=== PATIENT | male | born 1985 | race Caucasian/White ===

== ENCOUNTER 2024-02-24 21:55 | Emergency (ER) | payer OTHER ==
--- OUTSIDE RECORDS SUMMARY | 2024-02-24 21:59 | XMS REPORT | Continuity of Care Document ---
Author Name Unknown Address [address] [place] [place] [address] [facility]connect Address [address] [facility] [address] [place] [address] Care Team Providers Care Polysomnography Technician Name Role Phone Cecy Morrell MD Primary Care Physician [phone] Jorge Mukherjee Attending Clinician Unavailab le FOG_A_Provider Attending Clinician Unavailable Cecy Morrell MD Attending Clinician [phone] Doctor Unassigned, [place]er Attending Clinician U AIDE Jackson Attending Clinician UnaCECY Gibbons Attending Clinician Unavailable Apolinar Calderon Attending Clinician Unavailable Syeda Brannon Admitting Clinician Unavaila ble FOG_A_Provider Admitting Clinician Unavailable Payers Payer Name Policy Type Policy Number Effective Date Expirati on Date Source [facility] CHOICE PLUS (PPO) [id number] 2023 00:00:00 Problems Condition Name Condition Details Condition Category Status Onset Date Resolution Date Last Treatment Date Treating Clinician Comments Source No known active problems No known active problems Disease [facility] Allergies, Adverse Reactions, Alerts Allergy Name Allergy Type Status Severity Reaction(s) Onset Date Inactive Date Treating Clinician Comments Source No Known Allergie s DA Active U 2021-11 00:00: 00 [facility] PENICILL INS Drug Class Active Rash 08-14 00:00: 00 [facility] Penicill ins Propensi ty to adverse reaction s Active Rash 08-14 00:00: 00 [facility] Penicill ins Propensi ty to adverse reaction s Active Rash 08-14 00:00: 00 [facility] NO KNOWN ALLERGIE S Drug Class Active [facility] Social History Social Habit Start Date Stop Date Quantity Comments Source Exposure to SARS-CoV-2 (event) 2022-10-20 00:00:00 2022-10-30 07:45:00 Not sure [facility] Tobacco use and exposure 2022-08-22 00:00:00 2022-08-22 00:00:00 Smokeless tobacco non-user [facility] Sex Assigned At 1985 00:00:00 1985 00:00:00 [facility] Smoking Status Start Date Stop Date Source Tobacco smoking consumption unknown [facility] Never smoked tobacco [facility] Medications Ordered Medication Name Filled Medication Name Start Date Stop Date Current Medication? Ordering Clinician Indication Dosage Frequency Signature (SIG) Comments Components Source clotrimazol e-betametha sone cream 12-31 00:00: 00 Yes [id number] Apply to area(s) 2 (two) times daily. [facility] semaglutide (OZEMPIC) 1 mg/dose (2 mg/1.5 mL) [facility] 2021-11 00:00: 00 Yes [id number] 104 inject 1 mg base under the skin weekly. [facility] semaglutide (OZEMPIC) 1 mg/dose (2 mg/1.5 mL) [facility] 2021-11 1- 00:00: 00 11-20 00:00 :00 No [id number] 104 inject 1 mg base under the skin weekly. [facility] semaglutide (OZEMPIC) 0.25 mg or 0.5 mg(2 mg/1.5 mL) [facility] 2021-11 0-06 00:00: 00 09-25 00:00 :00 No [id number] 104 .5mg inject 0.5 mg under the skin weekly. [facility] clotrimazol e-betametha sone cream 08-22 00:00: 00 12-31 00:00 :00 No [id number] Apply to area(s) 2 (two) times daily. [facility] semaglutide , weight loss, 0.5 mg/0.5 mL PnIj SC injection 08-22 00:00: 00 08-28 00:00 :00 No [id number] 104 .5mg inject 0.5 mg under the skin weekly for 30 days. [facility] No known medications 08-14 10:22: 10 No [facility] Immunizations Ordered Immunization Name Filled Immunization Name Date Status Comments Source Pfizer COVID-19 Vaccine Pfizer COVID-19 Vaccine 2021-08-09 00:00:00 Completed Pfizer COVID-19 Vaccine Pfizer COVID-19 Vaccine 2021-07-09 00:00:00 Completed Vital Signs Vital Name Observation Time Observation Value Comments S ource Systolic blood pressure 2022-09-25 18:54:00 129 mm[Hg] [facility] Diastolic blood pressure 2022-09-25 18:54:00 84 mm[Hg] [facility] Heart rate 2022-09-25 18:54:00 73 /min [facility] Body temperature 2022-09-25 18:25:00 36.61 Tran [facility] Respiratory rate 2022-09-25 18:25:00 20 /min [facility] Body height 2022-09-25 18:25:00 180.3 cm [facility] Body weight 2022-09-25 18:25:00 136.034 kg [facility] BMI 2022-09-25 18:25:00 41.83 kg/m2 [facility] Oxygen saturation in Arterial blood by Pulse oximetry 2022-09-25 18:25:00 96 /min [facility] Systolic blood pressure 2022-08-22 19:21:00 136 mm[Hg] [facility] Diastolic blood pressure 2022-08-22 19:21:00 84 mm[Hg] [facility] Heart rate 2022-08-22 19:21:00 75 /min [facility] Body temperature 2022-08-22 19:21:00 36.17 Tran [facility] Respiratory rate 2022-08-22 19:21:00 20 /min [facility] Body height 2022-08-22 19:21:00 179.1 cm [facility] Body weight 2022-08-22 19:21:00 139.164 kg [facility] BMI 2022-08-22 19:21:00 43.40 kg/m2 [facility] Oxygen saturation in Arterial blood by Pulse oximetry 2022-08-22 19:21:00 96 /min [facility] Systolic blood pressure 2021-08-14 14:27:00 137 mm[Hg] [facility] Diastolic blood pressure 2021-08-14 14:27:00 83 mm[Hg] [facility] Heart rate 2021-08-14 14:27:00 57 /min [facility] Body temperature 2021-08-14 14:27:00 36.28 Tran [facility] Respiratory rate 2021-08-14 14:27:00 18 /min [facility] Body height 2021-08-14 14:27:00 180.3 cm [facility] Body weight 2021-08-14 14:27:00 130.636 kg [facility] BMI 2021-08-14 14:27:00 40.17 kg/m2 [facility] Oxygen saturation in Arterial blood by Pulse oximetry 2021-08-14 14:27:00 97 /min [facility] Procedures Procedure Date / Time Performed Performing Clinician Source REFERRAL- REQUEST/RESPONSE 2022-11-08 06:01:00 Doctor Unassigned, Maeser [facility] ASSIGNMENT OF BENEFITS 2022-08-22 19:10:29 Docto r Unassigned, Maeser [facility] PATIENT QUESTIONNAIRE 2021-08-14 05:01:00 Doctor Unassigned, Maeser [facility] Encounters Start Date/Time End Date/Time Encounter Type Admission Type Attending Clinicians Care Facility Care Department Encounter ID Source 2023-08-15 17:39:00 2023-08-15 19:39:00 Emergency EM Jorge Mukherjee [facility] [id number] [facility] 2023-05-04 00:00:00 2023-05-04 00:00:00 Outpatient FOG_A_Provi briana AOSM AOSM [id number] [facility] 2023-05-01 00:00:00 2023-05-01 00:00:00 Outpatient FOG_A_Provi briana AOSM AOSM [id number] [facility] 2023-04-30 00:00:00 2023-04-30 00:00:00 Outpatient FOG_A_Provi briana AOSM AOSM [id number] [facility] 2023-04-29 00:00:00 2023-04-29 00:00:00 Outpatient FOG_A_Provi briana AOSM AOSM [id number] [facility] 2022-12-31 00:00:00 2022-12-31 00:00:00 Telephone Cecy Morrell [facility] 1..114 350.1.13.10 4.2.7.2.686 [id number] [facility] 2022-11-20 00:00:00 2022-11-20 00:00:00 Refill Cecy Morrell [facility] 1..114 350.1.13.10 4.2.7.2.686 [id number] [facility] 2022-11-08 00:00:00 2022-11-08 00:00:00 Orders Only Doctor Unassigned, Maeser [facility] 1.840.114 350.1.13.10 4.2.7.2.686 [id number] [facility] 2022-10-30 08:40:00 2022-10-30 08:40:00 Outpatient R CECY MORRELL [facility] [id number] [facility] 2022-10-28 15:09:00 2022-10-28 17:23:00 Emergency EM Apolinar Calderon [facility] [id number] [facility] 2022-09-25 13:20:00 2022-09-25 13:40:00 Office Visit PorscheCecy [facility] 1.840.114 350.1.13.10 4.2.7.2.686 [id number] [facility] 2022-09-25 13:20:00 2022-09-25 13:20:00 Outpatient R [facility] [id number] [facility] 2022-09-25 00:00:00 2022-09-25 00:00:00 Letter (Out) Doctor Unassigned, Ma[place]er [facility] 1.0.114 350.1.13.10 4.2.7.2.686 [id number] [facility] 2022-08-22 14:00:00 2022-08-22 14:20:00 Office Visit Cecy Morrell [facility] 1.2840.114 350.1.13.10 4.2.7.2.686 [id number] [facility] 2022-08-22 14:00:00 2022-08-22 14:00:00 Outpatient R PORSCHE [facility] [id number] [facility] 2022-08-22 00:00:00 2022-08-22 00:00:00 Orders Only Doctor Unassigned, [place]er [facility] 1.840.114 350.1.13.10 4.2.7.2.686 [id number] [facility] 2022-08-22 00:00:00 2022-08-22 00:00:00 Telephone Cecy Morrell [facility] 1.2.840.114 350.1.13.10 4.2.7.2.686 [id number] [facility] 2021-08-14 09:20:00 2021-08-14 09:20:00 Outpatient R CECY MORRELL [facility] [id number] [facility] 2021-08-14 08:54:28 2021-08-14 09:14:28 Office Visit Cecy Morrell [facility] 1..840.114 350.1.13.10 4.2.7.2.686 [id number] [facility] 2021-08-14 00:00:00 2021-08-14 00:00:00 Orders Only Doctor Unassigned, Maeser [facility] 1.2.840.114 350.1.13.10 4.2.7.2.686 [id number] [facility] 2021-08-09 00:00:00 2021-08-09 00:00:00 Outpatient [facility] [id number] [facility] 2021-07-09 00:00:00 2021-07-09 00:00:00 Outpatient GCCOVIDV [facility] [id number] [facility] Results Test Description Test Time Test Comments Results Result Co mments Source POC STREP GROUP A [id number] 19:15:00* Test Item Value Reference Range Interpretation Comme nts POC STREP GROUP A QUAL (test code = EDSTREP) Negative Negative Testing performe d at:[facility] [address] [place], [place] [address]RN-XFJ Strep-A is a rapid, instrument-based, molecular invitro diagnostic test utilizing isothermal nucleic acidamplification technology for the qualitative detection ofStreptococcus pyogenes URINALYSIS [id number] 18:47:00* Test Item Value Reference Range Interpretation Comme nts POC URINE COLOR (test code = EDCOLU) Yellow Yellow Testing performe d at:[facility] [address] [place] [address] POC URINE CLARITY (test code = EDCLARITY) Clear Clear POC URINE GLUCOSE (test code = EDGLUU) Negative Negative POC URINE BILIRUBIN (test code = EDBILIU) Negative Negative POC URINE KETONES (test code = EDKETU) Negative Negative POC URINE SPECIFIC GRAVITY (test code = EDSGU) 1.025 1.001-1.035 N POC URINE BLOOD (test code = EDBLDU) Negative Negative POC URINE pH (test code = EDPH) 7.0 5.0-8.0 N POC URINE PROTEIN (test code = EDPROTU) Negative Negative POC URINE UROBILINOGEN (test code = EDURO) 1.0 E.U/dL 0.2-1.0 POC URINE NITRITE (test code = EDNIT) Negative Negative POC URINE LEUKOCYTE ESTERASE (test code = EDLEUK) Negative Negative POC TROPONIN [id number] 18:39:00* Test Item Value Reference Range Interpretation Comme [facility] POC TROPONIN I (test code = EDTROPI) <0.05 ng/mL <0.05 N Testing performe d at:[facility] [address] [place] [address]"Point of Care test critical value notification anddocumentation is completed by nursing staff. Negative <0.05 ng/mLPositive >/= 0.05 ng/mL Test results should not be used as absolute evidence or lackof evidence of myocardial infarction and should be evaluatedin the context of all the clinical and laboratory dataavailable. In those instances where the test results do notagree with the clinical evaluation, additional tests shouldbe performed.An elevated troponin alone is not sufficient to diagnosemyocardial infarction. Rather, the patient's clinicalpresentation (history, physical exam) and ECG should be usedin conjunction with troponin in the diagnostic evaluation ofsuspected myocardial infarction. A serial sampling protocolis recommended to facilitate the identification of temporalchanges in troponin levels. POC LACTIC [id number] 18:36:00* Test Item Value Reference Range Interpretation Comme nts POC LACTIC ACID (test code = POCLAC) 1.2 mmol/l 0.9-1.7 N COMPREHENSIVE METABOLIC [id number] 18:32:00* Test Item Value Reference Range Interpretation Comme nts POC SODIUM (test code = CONSUELO) 141 mmol/L 134-147 N Testing performe d at:[facility] [address] [place], [place] [address] POC POTASSIUM (test code = EDK) 3.8 mmol/L 3.4-5.8 N POC CHLORIDE (test code = EDCL) 104 mmol/L 100-108 N POC TCO2 (test code = EDTCO2) 29 mmol/L 24-30 N POC ANION GAP (test code = EDAGAP) 8 0-20 N POC BUN (test code = EDBUN) 17 mg/dL 3-25 N POC CREATININE (test code = EDCRE) 1.2 mg/dL 0.6-1.3 N POC GLUCOSE (test code = EDGLUC) 105 mg/dL 70-110 N POC CALCIUM (test code = EDCA) 9.7 mg/dL 7.0-11.0 N POC eGFR (test code = EDGFR) 80 mL/min See_Comment eGFR is not calc ulated if age <18 yrs, if the sex in EHR islisted as unknown or the creatinine level is below assayrange.This result value is determined by the eGFR 2021 CKD-EPIformula using serum creatinine, age and sex, excluding arace coefficient. The assay for creatinine is traceable tothe IDAR reference method. Chronic kidney disease (CKD) maynot be detectable based solely on creatinine levels. A eGFR> 60 does not rule out mild renal disease. To distinguishnormal renal function from mild renal disease, furtherlaboratory testing may be required. [Automated message] The system which generated this result transmitted reference range: >or=60. The reference range was not used to interpret this result as normal/abnormal. POC ALBUMIN (test code = EDALB) 3.8 g/dL 3.5-5.0 N POC TOTAL PROTEIN (test code = EDTP) 7.6 g/dL 5.0-8.0 N POC BILIRUBIN TOTAL (test code = EDTBIL) 0.6 mg/dL 0.0-1.0 N POC AST (test code = EDAST) 23 U/L 15-37 N POC ALT (test code = EDALT) 34 U/L 30-65 N POC ALKALINE PHOSPHATASE (test code = EDALP) 74 U/L 20-125 N - XR CHEST 2 [id number] 18:25:00 [facility] 1985 Sex: M FAX: Jorge Mukherjee [place]: [place] St: PRE FAX: Syeda Brannon [employer] Name: ERICKA FRIAS FSED : 1985 Age/S: 37/M [address] [facility] Unit #: [id number] Loc: [place] [address] Phys: Scot Mukherjee MD Acct: [id number] Dis Date: Status: PRE ER PHONE #: Exam Date: 08/15/2023 1820 FAX #: Reason: sob, fever, eval for pna EXAMS: CPT CODE: [id number] XR CHEST 2 V 32488 Location: H3 CHEST X-RAY: PA and lateral projection, 2 views conducted 08/15/23 CLINICAL HISTORY: Shortness of breath, fever. This is a 37-year-old patient presenting to the ER COMPARISON EXAMS: Chest x-ray examination conducted 10/28/22 FINDINGS: Heart, lungs, and mediastinal structures are within normal limits. No evolvingprocess or pleural based finding. No active CHF or pneumonia. No groundglass density. No evolving lobar consolidation. No abnormal air collection. IMPRESSION: No acute finding at 1825 Reported and signed by: Elis Tate M.D. CC: Jorge Mukherjee MD; Syeda Brannon Technologist: Shari Maher RT(R)(CT) Trnscrd Date/Time/By: 08/15/2023 (1824) : By: [email or web address] Orig Print D/T: S: 08/15/2023 (1827)PAGE 1 Signed ReportCOMPLETE BLOOD COUNT (CBC)2023-08-15 18:18:00* Test Item Value Reference Range Interpretation Comme nts POC WHITE BLOOD CELL (test code = EDWBC) 5.2 10 3/uL 3.9-9.4 N Testing perf ormed at:[facility] [address] [place], [place] [address] POC RED BLOOD CELL (test code = EDRBC) 5.27 10 6/uL 4.14-5.52 N POC HEMOGLOBIN (test code = EDHGB) 15.4 g/dL 11.9-16.7 N POC HEMATOCRIT (test code = EDHCT) 45.3 % 36.1-49.4 N POC MEAN CELL VOLUME (test code = EDMCV) 86.0 fL 83.2-96.0 N POC MEAN CELL HEMOGLOBIN (test code = EDMCH) 29.2 pg 27.1-32.5 N POC MEAN CELL HGB CONC (test code = EDMCHC) 34.0 g/dL 31.0-35.8 N POC PLATELET COUNT (test code = EDPLT) 165 10 3/uL 155-330 N POC RED CELL DISTRIB WIDTH (test code = EDRDW-CV) 13.2 % 12.0-15.0 N POC LYMPHOCYTES % (test code = EDLYM%) 24.2 % 16.8-42.5 N POC MIXED CELLS % (test code = EDMXD%) 9.3 % 3.2-16.9 N POC NEUTROPHILS % (test code = EDNEUT%) 66.5 % 46.4-74.7 N POC LYMPHOCYTES # (test code = EDLYM#) 1.30 k/mm3 0.9-3.0 N POC MIXED CELLS # (test code = EDMXD#) 0.5 10 3/uL 0.2-1.1 N POC NEUTROPHILS # (test code = EDNEUT#) 3.40 10 3/uL 2.2-6.4 N POC MEAN PLATELET VOLUME (test code = EDMPV) 11.5 fL 8.7-12.6 N Coronavirus 2019 nCoV [id number] 18:14:00* Test Item Value Reference Range Interpretation Comme nts Coronavirus 2019 nCoV Bedside (test code = [id number]) Negative Negative The [employer] ID NO W utilizes isothermal [place]icking EnzymeAmplification Reaction (NEAR) technology in the qualitativedetection of infectious diseases. With NEAR technology,amplified target detection is achieved with the use offluorescently labeled molecular beacons, comparable to PCRtechniques -----Negative results should be treated as presumptive and, ifinconsistent with clinical signs and symptoms or necessaryfor patient management, should be tested with an alternativemolecular assay. Negative results do not preclude ESUP-IhK-3cfelttwdd and should not be used as the sole basis forpatient management decisions. Negative results should beconsidered in the context of a patient's recent exposures,history, presence of clinical signs and symptoms consistentwith COVID-19. BASIC METABOLIC [id number] 16:25:00* Test Item Value Reference Range Interpretation Comme nts SODIUM (test code = NA) 140 mEq/L 134-147 N POTASSIUM (test code = K) 4.0 mEq/L 3.4-5.0 N CHLORIDE (test code = CL) 107 mEq/L 100-108 N CARBON DIOXIDE (test code = CO2) 28 mEq/l 21-33 N ANION GAP (test code = GAP) 9 0-20 N GLUCOSE (test code = GLU) 95 mg/dL 70-110 N BLOOD UREA NITROGEN (test code = BUN) 16 mg/dL 7-18 N GLOMERULAR FILTRATION RATE (test code = GFR) 100.0 105-110 L The Glomerular Filtration Rate is a calculated parameterbased on serum Creatinine, patient age and sex. GFR valuesless than 60 mL/min/1.73 square meters are indicative ofChronic Kidney Disease. Values less than 15 mL/min/1.73square meters indicate Kidney failure. The calculation forGFR is based on the CKD-EPI (2020) calculation. This formulais race indifferent and is the recommended formula for GFRby the National Kidney Foundation for Adults.The GFR will not calculate if the sex is unknown or if thepatient's age is <18 years. CREATININE (test code = CREAT) 1.0 mg/dL 0.6-1.3 N CALCIUM (test code = CA) 9.1 mg/dL 8.0-10.5 N TROP-I HIGH [id number] 16:25:00* Test Item Value Reference Range Interpretation Comme nts TROP-I HIGH SENSITIVITY (test code = TROPIHS) 3 ng/L 0-54 N CAUTION: Units o f the current test methodology (ng/L) differfrom the prior test methodology (ng/mL) by a factor of 1000. 99th Percentile Upper Reference Limit (URL): Females: 34 ng/LMales: 54 ng/L In order to distinguish acute elevations of high sensitivitytroponin from other clinical conditions, the FourthUniversal Definition of Myocardial Infarction stressesclinical assessment and the demonstration of a rise and/orfall in serial troponin results above the URL. These results were obtained using Siemens AteSverve IM TnIHreagent. Results from different methodologies should not becompared to one another as quantitative results and URLs mayvary by method. CBC W/AUTO [id number] 16:08:00* Test Item Value Reference Range Interpretation Comme nts WHITE BLOOD CELL (test code = WBC) 6.6 x10 3/uL 4.5-11.0 N RED BLOOD CELL (test code = RBC) 4.99 x10 6/uL 4.00-5.60 N HEMOGLOBIN (test code = HGB) 14.9 g/dL 12.5-16.9 N HEMATOCRIT (test code = HCT) 42.3 % 37.5-50.7 N MEAN CELL VOLUME (test code = MCV) 84.8 fL 81.0-99.0 N MEAN CELL HGB (test code = MCH) 29.9 pg 27.0-33.0 N MEAN CELL HGB CONCETRATION (test code = MCHC) 35.2 g/dL 33.0-37.0 N RED CELL DISTRIBUTION WIDTH CV (test code = RDW) 12.1 % 11.5-14.5 N RED CELL DISTRIBUTION WIDTH SD (test code = RDW-SD) 36.9 fL 37.0-54.0 L PLATELET COUNT (test code = PLT) 205 x10 3/uL 150-400 N MEAN PLATELET VOLUME (test c ode = MPV) 9.9 fL 7.0-9.0 H NEUTROPHIL % (test code = NT%) 47.8 % 56.0-77.0 L IMMATURE GRANULOCYTE % (test code = IG%) 0.2 % 0.0-2.0 N LYMPHOCYTE % (test code = LY%) 41.5 % 14.0-32.0 H MONOCYTE % (test code = MO%) 8.6 % 4.8-9.0 N EOSINOPHIL % (test code = EO%) 1.1 % 0.3-3.7 N BASOPHIL % (test code = BA%) 0.8 % 0.0-2.0 N NUCLEATED RBC % (test code = NRBC%) 0.0 % 0-0 N NEUTROPHIL # (test code = NT#) 3.17 x10 3/uL 2.0-7.6 N IMMATURE GRANULOCYTE # (test code = IG#) 0.01 x10 3/uL 0.00-0.03 N LYMPHOCYTE # (test code = LY#) 2.75 x10 3/uL 1.0-3.8 N MONOCYTE # (test code = MO#) 0.57 x10 3/uL 0.1-0.8 N EOSINOPHIL # (test code = EO#) 0.07 x10 3/uL 0.0-0.2 N BASOPHIL # (test code = BA#) 0.05 x10 3/uL 0.0-0.2 N NUCLEATED RBC # (test code = NRBC#) 0.00 x10 3/uL 0.0-0.1 N MANUAL DIFF REQUIRED (test c ode = LALITA) NO - XR CHEST 1 [id number] 00:00:00 [facility] 1985 Sex: M FAX: Syeda Brannon [facility] [place]: St: REG FAX: Apolinar Calderon MD Name: ERICKA FRIAS [facility] : 1985 Age/S: 36/M [address] [place] [address] Unit #: [id number] Loc: [place] [address] Phys: Apolinar Calderon MD Acct: [id number] Dis Date: Status: REG ER PHONE #: [phone] Exam Date: 10/28/2022 1614 FAX #: [phone] Reason: CP EXAMS: CPT CODE: [id number] XR CHEST 1 V 21663 PROCEDURE INFORMATION: Exam: XR Chest Exam date and time: 10/28/2022 4:09 PM Age: 36 years old Clinical indication: Other: Cp TECHNIQUE: Imaging protocol: Radiologic exam of the chest. Views: 1 view. COMPARISON: No relevant prior studies available. FINDINGS: Lungs: Mild decreased lung volumes. No consolidation. Pleural spaces: No pleural effusion. No pneumothorax. Heart/Mediastinum: The cardiac silhouette is not enlarged. Bones/joints: No destructive bone lesions. IMPRESSION: No acute cardiopulmonary findings. at 1656 Reported and signed by: Cody Carr M.D. CC: Syeda Brannon; Apolinar Calderon MD Technologist: RT Malvin(R) Trnscrd Date/Time/By: 10/28/2022 (1655) : By: [email or web address] Orig Print D/T: S: 10/28/2022 ( 1655) PAGE 1 Signed Report Notes Date/Time Note Provider Source 2023-08-15 17:58:00 [id number]/pSlNtbVqhDg/[id number]:58:00 [facility] ([facility])EMERGENCY PROVIDER REPORTREPORT#:[id number] REPORT STATUS: SignedDATE:08/15/23 TIME: 1757 PATIENT: ERICKA FRIAS UNIT #: [id number]#: [id number] ROOM/BED:AGE: 37 SEX: M PCP PHYS: Syeda BrannonERVICE AUTHOR: Jorge Mukherjee MD * ALL edits or amendments must be made on the electronic/computer document * HPI-Fever Free Text HPI NotesFree Text HPI Eebly42-opgm-thc no significant past medical history, here with 3 days of congestion,fatigue, fever and stiff neck that developed earlier today. 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 Denies any trauma. Reports several children at home who have had infectious symptoms, tested negative for COVID, flu, strep. Patient reports soreness but not stiffness in neck, no vision changes, other back pain, generally feels fatigued and achy. Reports dyspnea, particularly on walking. Denies any chest pain, abdominal pain. GeneralInitial Greet Date/Time 08/15/23 1743PCPKathleenvijay Brannon ([facility]) PresentationChief Complaint Fever, currently Review of Systems Free Text ROS NotesFree Text ROS NotesReview of systems was performed, pertinent positives and negatives noted in HPI Past Medical History - AdultStated Complaint FEVER, STIFF NECKAllergiesCoded Allergies:No Known Allergies (10/28/22) Calculated Suicide Risk (nurs) No riskSmoking status for patients 13 years old or older: Never Smoker Physical Exam Vital SignsVital SignsFirst Documented: Result Date Time Pulse Ox 96 08/15 1744 B/P 148/80 08/15 1744 B/P Mean 102 08/15 1744 O2 Delivery Room air 08/15 1744 Temp 37.8 08/15 1744 Pulse 101 08/15 1744 Resp 16 08/15 1744 Last Documented: Result Date Time Pulse Ox 97 08/15 1936 B/P 138/80 08/15 1936 B/P Mean 99 08/15 1936 Temp 36.8 08/15 1936 Pulse 89 08/15 1936 Resp 15 08/15 1936 O2 Delivery Room air 08/15 1744 Review of Vital Signs Reviewed Free Text PE NotesFree Text PE NotesGEN/CONST: awake, alertMS HEAD: normocephalicEYES: EOMI, no scleral icterusEARS/NOSE/THROAT: airway patent, mucous membranes moistMS NECK: supple, full range of motion, no tenderness to palpation, no meningismusRESPIRATORY/CHEST: breath sounds equal bilaterally, no respiratory distressCARDIOVASCULAR: Tachycardic rate and regular rhythmABDOMEN/GI: no distension, soft and nontenderMS BACK: painless range of motion, non-tender, negative Kernig and Brudzinski signMS UPPER EXT: inspection normal, no deformity MS LOWER EXT: inspection normal, no deformity SKIN: warm, dry, intactNEURO: normal speech, no motor deficits Interpretation Diagnostics Lab Results InterpretationResultsLaboratory Tests: 08/15 08/15 08/15 08/15 1908 1906 1845 1837Chemistry POC Troponin I (<0.05 ng/mL) <0.05Serology POC Influenza A Ag (Negative) Negative POC Influenza B Ag (Negative) Negative POC Group A Strep Rpd (Negative) NegativeUrines POC Urine Color (Yellow) Yellow POC Urine Appearance (Clear) Clear POC Urine pH (5.0 - 8.0) 7.0 POC Ur Specif [place] (1.001 - 1.035) 1.025 POC Urine Protein (Negative) Negative POC Ur Glucose (UA) (Negative) Negative POC Urine Ketones (Negative) Negative POC Urine Blood (Negative) Negative POC Urine Nitrite (Negative) Negative POC Urine Bilirubin (Negative) Negative POC Urine Urobilinogen (0.2 - 1.0 E.U/dL) 1.0 POC U Leukocyte Esteras (Negative) Negative 08/15 08/15 08/15 1820 1817 1804 Blood Gas Lactic Acid (0.9 - 1.7 mmol/l) 1.2 Chemistry POC Sodium (134 - 147 mmol/L) 141 POC Potassium (3.4 - 5.8 mmol/L) 3.8 POC Chloride (100 - 108 mmol/L) 104 POC Total CO2 (24 - 30 mmol/L) 29 POC Anion Gap (0 - 20) 8 POC BUN (3 - 25 mg/dL) 17 POC Creatinine (0.6 - 1.3 mg/dL) 1.2 Est GFR (CKD-EPI 2020) (>or=60 mL/min) 80 POC Glucose (70 - 110 mg/dL) 105 POC Calcium (7.0 - 11.0 mg/dL) 9.7 POC Total Bilirubin (0.0 - 1.0 mg/dL) 0.6 POC AST (15 - 37 U/L) 23 POC ALT (30 - 65 U/L) 34 POC Alk Phosphatase (20 - 125 U/L) 74 POC Total Protein (5.0 - 8.0 g/dL) 7.6 POC Albumin (3.5 - 5.0 g/dL) 3.8 Hematology POC WBC (3.9 - 9.4 10 3/uL) 5.2 POC RBC (4.14 - 5.52 10 6/uL) 5.27 POC Hgb (11.9 - 16.7 g/dL) 15.4 POC Hct (36.1 - 49.4 %) 45.3 POC MCV (83.2 - 96.0 fL) 86.0 POC MCH (27.1 - 32.5 pg) 29.2 POC MCHC (31.0 - 35.8 g/dL) 34.0 POC RDW Coeff of Etta (12.0 - 15.0 %) 13.2 POC Platelet Count (155 - 330 10 3/uL) 165 POC MPV (8.7 - 12.6 fL) 11.5 POC Mixed Cells % (3.2 - 16.9 %) 9.3 POC Neut # (2.2 - 6.4 10 3/uL) 3.40 POC Lymph # (0.9 - 3.0 k/mm3) 1.[address] # (0.2 - 1.1 10 3/uL) 0.5 POC Lymphocytes % (16.8 - 42.5 %) 24.2 POC Neutrophils % (46.4 - 74.7 %) 66.5 Serology SARS CoV-2 RNA Rapid PERICO (Negative) Negative Microbiology: Date/Time Procedure - Status Source Growth 08/15 1754 MRSA DNA Surveillance Screen - COLB NASAL 08/15 161 Blood Culture - RES BLOOD 08/15 1610 Blood Culture Gram Stain - RES BLOOD 08/15 1553 Blood Culture - RES BLOOD 08/15 1553 Blood Culture Gram Stain - RES BLOOD Recent Impressions:RADIOLOGY - XR CHEST 2 V 08/15 1820 Report Impression - Status: SIGNED Entered: 08/15/20231827 IMPRESSION: No acute finding Impression By: Lewis - Elis Tate M.D. ECG #1 InterpretationText/Dict NoteEKG from 08/15/2023 at 1837, performed for sepsis screenInterpreted by myself, ED physicianSinus rhythm, rate 89Normal axisNormal intervalsNo ST elevation or ST depression suggestive of ischemia Re-Evaluation MDM Free Text MDM NotesFree Text MDM [id number] otherwise healthy here for several days of fever, fatigue, new neck pain Considered meningitis, patient with very supple neck, full range of motion, negative Kernig and Budzinski, no indication for lumbar puncture at this time Given fever and heart rate, meets SIRS criteria with infectious signs and symptoms will treat as sepsis with full sepsis protocol and fluid bolus adjustedfor IBW Given shortness of breath will treat for possible pulmonary causes with ceftriaxone and azithromycin as initial antimicrobial coverage Re-Evaluation/ProgressRe-Evaluation/Progress Text/Dict NotePatient with symptomatic improvement, improvement in vital sign, no leukocytosis, no other signs of organ dysfunction/damage, no lactic acid elevation Chest x-ray independently reviewed and interpreted by me, ED physician. No focal consolidation suggestive of pneumonia, no pneumothorax. 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 Discussed strict return precautions. All caregivers present expressed understanding and agreement with plan along with the patient. Discharged in stable condition. ED CourseMedication(s) OrderedMedication(s) Ordered:Anti-Infective Agents Sig/Clarisse Start time Last Medication Dose Route Stop Time Status Admin Azithromycin 500 MG X1ED STA 08/15 1753 DC 08/15 Sodium Chloride 250 ML IV 08/15 1852 1813 Ceftriaxone Sodium 1,000 MG X1ED STA 08/15 1753 DC 08/15 Sodium Chloride 10 ML IV 08/15 175 1813 Central Nervous System Agents Sig/Clarisse Start time Last Medication Dose Route Stop Time Status Admin Acetaminophen 1,000 MG X1ED STA 08/15 1753 DC 08/15 PO 08/15 175 1806 Ibuprofen 600 MG X1ED STA 08/15 1753 DC 08/15 PO 08/15 175 1806 Electrolytic, Caloric, And Risa Sig/Clarisse Start time Last Medication Dose Route Stop Time Status Admin Sodium Chloride 2,259 ML X1ED STA 08/15 1753 DC 08/15 IV 08/15 175 1810 Patient Discharge Departure Vital Signs/ConditionVital SignsFirst Documented: Result Date Time Pulse Ox 96 08/15 174 B/P 148/80 08/15 174 B/P Mean 102 08/15 174 O2 Delivery Room air 08/15 1744 Temp 37.8 08/15 174 Pulse 101 08/15 174 Resp 16 08/15 1744 Last Documented: Result Date Time Pulse Ox 97 08/15 1936 B/P 138/80 08/15 1936 B/P Mean 99 08/15 1936 Temp 36.8 08/15 1936 Pulse 89 08/15 1936 Resp 15 08/15 1936 O2 Delivery Room air 08/15 1744 All vital signs available at the time of this entry have been reviewed. Condition Stable, Improved Clinical ImpressionClinical ImpressionPrimary Impression: Viral syndromeTime of Impression 1919 Disposition DecisionDischarge )( Discharged to Home Yes )( Time 1919 )( Date 08/15/23 Discharge/Care PlanPatient Instructions ED Fever Control (Adult), ED Viral Syndrome (Adult)Additional InstructionsFor pain, you can take 400mg of Ibuprofen every 4 hours and 650 mg of Acetaminophen every 6 hours. They are available over the counter at most pharmacies and grocery stores. ReferralsReferral: Primary Care Follow-Up: Call for appointment at 0619RPT #:[id number] OF REPORTEDEmergency department [id number]:58:00G.[id number] ilable for patient [id number]:20:04 [facility] 2022-10-28 16:09:00 [id number]:09:00 [facility]EM[facility] PROVIDER REPORTREPORT#:[id number] REPORT STATUS: SignedDATE:10/28/22 TIME: 1609 PATIENT: ERICKA FRIAS UNIT #: [id number]#: [id number] ROOM/BED:AGE: 36 SEX: M PCP PHYS: Syeda Brannon FNPSERVICE AUTHOR: Apolinar Calderon MD * ALL edits or amendments must be made on the electronic/computer document * HPI-General Illness Free Text HPI NotesFree Text HPI [id number] male with no segment past medical history. 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 Patient has noted chest pain for the past 3 days, dull, radiating to the right side and arm. No change with motion, does not radiate to back. No diaphoresis,nausea vomiting, leg swelling. Patient took an aspirin, no improvement. Patient worried given that they did an EKG on the chart, noted some EKG changes GeneralInitial Greet Date/Time 10/28/22 5357 PresentationChief Complaint Chest pain Review of Systems ROS StatementsAll systems rev neg except as marked. Review of SystemsConstitutionalDenies: Fever. RespiratoryDenies: Cough, productive, Shortness of breath. CardiovascularReports: Chest pain. Denies: Dyspnea on exertion, Edema, Orthopnea, Syncope. Past Medical History - AdultStated Complaint CPAllergiesCoded Allergies:No Known Allergies (10/28/22) Calculated Suicide Risk (nurs) No riskPt reports no significant: Past medical history, Past surgical historySmoking status for patients 13 years old or older: Never Smoker Physical Exam Vital SignsVital SignsFirst Documented: Result Date Time Pulse Ox 97 10/28 1521 B/P 143/90 / 1521 B/P Mean 107 10/28 1521 O2 Delivery Room air 10/28 152 Temp 36.8 10/28 1521 Pulse 66 10/28 1521 Resp 16 10/28 152 Last Documented: Result Date Time Pulse Ox 97 10/28 1521 B/P 143/90 10/28 1521 B/P Mean 107 10/28 1521 O2 Delivery Room air 10/28 1521 Temp 36.8 10/28 152 Pulse 66 10/28 1521 Resp 16 10/28 1521 Review of Vital Signs Reviewed Basic Physical ExamBasic PE GEN: Well appearing/NAD, HEAD: Atraumatic/NC, EYES: PERRL, conj clear, ENT: Membranes moist, NECK: Supple, RESP: No resp distress, CV: Reg rate rhythm, ABD: Soft/non-tender, EXT: No gross abnormality, SKIN: No rashes, warm/dry, NEURO: alert oriented, NEURO: gross movement NL, PSYCH: NL thought content Physical ExamGeneral/Const General/Const Awake, Alert, Well appearingResp/Chest Respiratory/Chest Breath sounds NL, Breath sounds = bilat, No respiratory distress, No rales, No rhonchi, No wheezingCardiovascular Cardiovascular Heart rate NL, Regular rhythm, Heart sounds NL, Cap refill notdelayed, Peripheral circulation NLAbdomen/GI Abdomen/GI Soft, Non-tender, No guarding, No reboundMS Lower Extrem Lower Ext/Pelvis/MS Inspection NL, No swelling, Non-tender, No erythema, No deformity, Neurologic intact, Vascular intact, No edemaNeurologic Neurologic Oriented X3, Speech NL, No motor deficits, No sensory deficits Interpretation Diagnostics Lab Results InterpretationResultsLaboratory Tests 10/28/22 1559:[Embedded Image Not Available]Laboratory Tests: 10/28 1559 Chemistry Sodium (134 - 147 mEq/L) 140 Potassium (3.4 - 5.0 mEq/L) 4.0 Chloride (100 - 108 mEq/L) 107 Carbon Dioxide (21 - 33 mEq/l) 28 Anion Gap (0 - 20) 9 BUN (7 - 18 mg/dL) 16 Creatinine (0.6 - 1.3 mg/dL) 1.0 Glomerular Filtr Rate (105 - 110) 100.0 L Glucose (70 - 110 mg/dL) 95 Calcium (8.0 - 10.5 mg/dL) 9.1 Troponin I High Sens (0 - 54 ng/L) 3 Hematology WBC (4.5 - 11.0 x10 3/uL) 6.6 RBC (4.00 - 5.60 x10 6/uL) 4.99 Hgb (12.5 - 16.9 g/dL) 14.9 Hct (37.5 - 50.7 %) 42.3 MCV (81.0 - 99.0 fL) 84.8 MCH (27.0 - 33.0 pg) 29.9 MCHC (33.0 - 37.0 g/dL) 35.2 RDW (11.5 - 14.5 %) 12.1 Plt Count (150 - 400 x10 3/uL) 205 MPV (7.0 - 9.0 fL) 9.9 H Neut % (Auto) (56.0 - 77.0 %) 47.8 L Lymph % (Auto) (14.0 - 32.0 %) 41.[address] % (Auto) (4.8 - 9.0 %) 8.6 Eos % (Auto) (0.3 - 3.7 %) 1.1 Baso % (Auto) (0.0 - 2.0 %) 0.8 Neut # (Auto) (2.0 - 7.6 x10 3/uL) 3.17 Lymph # (Auto) (1.0 - 3.8 x10 3/uL) 2.75 [place] # (Auto) (0.1 - 0.8 x10 3/uL) 0.57 Eos # (Auto) (0.0 - 0.2 x10 3/uL) 0.07 Baso # (Auto) (0.0 - 0.2 x10 3/uL) 0.05 Abs Immat Gran (auto) (0.00 - 0.03 x10 3/uL) 0.01 Add Manual Diff NO Immature Gran % (0.0 - 2.0 %) 0.2 Nucleated RBC % (0 - 0 %) 0.0 Nucleated RBCs # (Man) (0.0 - 0.1 x10 3/uL) 0.00 Recent Impressions:RADIOLOGY - XR CHEST 1 V 10/28 1614 Report Impression - Status: SIGNED Entered: 10/28/2022 1656 IMPRESSION: No acute cardiopulmonary findings. Impression By: [email or web address] - Cody Carr M.D. ECG #1 InterpretationText/Dict [id number]- EKG reviewed and interpreted by myself- NSR rate 86- Normal rate, Normal sinus rhythm, Normal Intervals and axis- No findings suggestive of acute ischemia. no STEMI, Adequate tracing Re-Evaluation MDM Free Text MDM NotesFree Text MDM [id number] male with chest pain, right-sided, minimal risk factors- chest pain non-pressure, not assoc with dyspnea or diaphoresis- LCTAB, normal heart sounds, no unilateral leg swelling. Normal distal pulses- Heart score low risk, Wells score low likelihood of PE or DVT, PERC 0. We will work-up including labs, likely discharge with cardiology follow-up ED CourseMedication(s) OrderedMedication(s) Ordered:Central Nervous System Agents Sig/Clarisse Start time Last Medication Dose Route Stop Time Status Admin Ketorolac 15 MG X1ED STA 10/28 1609 DC Tromethamine IV 10/28 1610 Patient Discharge Departure Vital Signs/ConditionVital SignsFirst Documented: Result Date Time Pulse Ox 97 10/28 1521 B/P 143/90 / 1521 B/P Mean 107 10/28 1521 O2 Delivery Room air 10/28 1521 Temp 36.8 12 1521 Pulse 66 10/28 1521 Resp 16 10/28 1521 Last Documented: Result Date Time Pulse Ox 97 10/28 1521 B/P 143/90 12/ 1521 B/P Mean 107 10/28 1521 O2 Delivery Room air 10/28 1521 Temp 36.8 12 1521 Pulse 66 10/28 1521 Resp 16 10/28 1521 All vital signs available at the time of this entry have been reviewed. Clinical ImpressionClinical ImpressionPrimary Impression: Chest pain Disposition DecisionDischarge )( Discharged to Home Yes )( Time 1704 )( Date 10/28/22 Discharge/Care PlanCounseled Regarding Diagnosis, Lab results, Imaging studies, Need for follow-up,When to return to EDPatient Instructions ED Chest Pain, Uncertain CauseAdditional InstructionsYou were seen in the ER for chest pain. We did a work-up including EKGs, lab work, chest x-ray which were all normal. We were looking for emergencies such as heart attacks, pneumonia, or other diseases involving your heart or lungs. Please continue to take Tylenol or NSAIDs (ibuprofen, Motrin, Advil, Aleve) as needed for aches and pains. Return to the ER if symptoms worsen including: Worsening shortness of breath, chest pain, respiratory distress, or any other concerns. Otherwise, please follow-up with your primary care physician in 1 week ReferralsProvider Referral: Lia Jacobo MD Address: [address] [place] [address] at 1750RPT #:[id number] OF REPORTEDEmerarkansas surgical hospital department [id number]:09:00G.[id number] ilable for patient [id number]:50:43 HCACL
[2024-02-24 23:13] LABS: Absolute Basophils 0.1 K/uL (0-0.5); Absolute Eosinophils 0.1 K/uL (0-0.5); Absolute Lymphocytes (CBC) 3.1 K/uL (0.7-4.9); Absolute Monocytes 0.5 K/uL (0.1-1.3); Absolute Neutrophil 3.2 K/uL (1.8-8.0); Basophils % 0.9 % (0-1.3); Eosinophils % 1.3 % (0-4.4); Hematocrit 43.3 % (39.6-49.0); Hemoglobin 14.6 g/dL (13.6-17.9); Lymphocytes % 44.5 % (15.3-44.8); MCH 29.3 pg (27.0-35.0); MCHC 33.8 g/dL (32.0-36.0); MCV 86.7 fL (80-100); Monocytes % 7.5 % (3.3-12.3); Neutrophils % 45.8 % (41.7-73.7); Nucleated Red Blood Cells % 0.1 % (0-0); Platelets 219 thou/uL (152-406); RBC Red Blood Cell Count 4.99 M/uL (4.33-5.43); Red Cell Distribution Width 13.2 % (12.1-15.2)
[2024-02-24 23:37] LABS: Anion Gap 8.8 mEq/L (5.0-15.0); Potassium 3.8 mEq/L (3.5-5.1); Troponin High Sensitivity 6.1 pg/mL (<58.9)
--- NOTE | 2024-02-25 03:09 | ER ---
Nurse's Notes [facility]read Name: Miko Martínez Age: 38 yrs Sex: Male : 1985 Arrival Date: 02/24/2024 Time: 21:55 Bed 19 Private MD: Diagnosis: Chest pain, unspecified;Non cardiac chest pain Presentation: 02/23 22:11 Chief complaint: Patient states: Chest pain onset 2 weeks ago. Pt states that the pain cm10 is constant and today the pain got worse. Pt reports indigestion, denies shortness of breath. Coronavirus screen: Client denies travel out of the [place] in the last 14 days. At this time, the client does not indicate any symptoms associated with coronavirus-19. Ebola Screen: Patient denies travel to an Ebola-affected area in the 21 days before illness onset. No symptoms or risks identified at this time. Initial Sepsis Screen: Does the patient meet any 2 criteria? No. Patient's initial sepsis screen is negative. Does the patient have a suspected source of infection? No. Patient's initial sepsis screen is negative. Risk Assessment: Do you want to hurt yourself or someone else? Patient reports no desire to harm self or others. Onset of symptoms was February 24, 2024. 22:11 Method Of Arrival: Ambulatory cm10 22:11 Acuity: DANIA 2 cm10 Historical: - Allergies: 22:12 PENICILLINS; cm10 - Home Meds: 22:12 None [Active]; cm10 - PMHx: 22:12 None; cm10 - PSHx: 22:12 None; cm10 - Immunization history:: Adult Immunizations up to date. - Infectious Disease History:: Denies. - Social history:: Smoking status: unknown. Screenin:59 [facility] ED Fall Risk Assessment (Adult) History of falling in the last 3 months, tm6 including since admission No falls in past 3 months (0 pts) Confusion or Disorientation No (0 pts) Intoxicated or Sedated No (0 pts) Impaired Gait No (0 pts) Mobility Assist Device Used No (0 pt) Altered Elimination No (0 pt) Score/Fall Risk Level 0 - 2 = Low Risk Oriented to surroundings, Maintained a safe environment. Abuse screen: Denies threats or abuse. Denies injuries from another. Nutritional screening: No deficits noted. Tuberculosis screening: No symptoms or risk factors identified. Assessment: 22:56 General: Appears in no apparent distress. Behavior is calm, cooperative. Pain: tm6 Complains of pain in chest Pain does not radiate. Pain currently is 4 out of 10 on a pain scale. Quality of pain is described as dull, Pain began two weeks ago. Neuro: Level of Consciousness is awake, alert, obeys commands, Oriented to person, place, time, situation. Cardiovascular: Reports chest pain, Patient's skin is warm and dry. Rhythm is sinus rhythm Chest pain began two weeks ago. Respiratory: Airway is patent Respiratory effort is even, unlabored, Respiratory pattern is regular, symmetrical. GI: No signs and/or symptoms were reported involving the gastrointestinal system. Abdomen is round non-distended. : No signs and/or symptoms were reported regarding the genitourinary system. EENT: No signs and/or symptoms were reported regarding the EENT system. Derm: No signs and/or symptoms reported regarding the dermatologic system. Musculoskeletal: No signs and/or symptoms reported regarding the musculoskeletal system. 23:36 Reassessment: Patient and/or family updated on plan of care and expected duration. Pain tm6 level reassessed. Patient is alert, oriented x 3, equal unlabored respirations, skin warm/dry/pink. 02/24 00:28 Reassessment: Patient and/or family updated on plan of care and expected duration. Pain tm6 level reassessed. Patient is alert, oriented x 3, equal unlabored respirations, skin warm/dry/pink. 01:25 Reassessment: Patient and/or family updated on plan of care and expected duration. Pain tm6 level reassessed. Patient is alert, oriented x 3, equal unlabored respirations, skin warm/dry/pink. 02:23 Reassessment: Patient appears in no apparent distress at this time. No changes from tm6 previously documented assessment. Vital Signs: 02/23 22:11 BP 143 / 85; Pulse 82; Resp 19; Temp 98.9; Pulse Ox 96% on R/A; Weight 136.08 kg; cm10 Height 5 ft. 11 in. ; Pain 4/10; 22:56 BP 139 / 83; Pulse 81; Pulse Ox 95% on R/A; Pain 4/10; tm6 23:37 BP 126 / 85; Pulse 75; Pulse Ox 95% on R/A; tm6 04/04 00:28 BP 130 / 65; Pulse 77; Pulse Ox 96% on R/A; tm6 01:25 BP 140 / 79; Pulse 69; Pulse Ox 95% on R/A; Pain 3/10; tm6 02:23 Pulse 69; Pulse Ox 98% on R/A; tm6 03:12 BP 138 / 76; Pulse 66; Resp 16; Temp 98; Pulse Ox 96% on R/A; rv 0403 22:11 Body Mass Index 41.84 (136.08 kg, 180.34 cm) cm10 0403 22:11 Pain Scale: Adult cm10 22:56 Pain Scale: Adult tm6 01:25 Pain Scale: Adult tm6 ED Course: 02/23 21:58 Patient arrived in ED. gm2 22:09 Waleska Farah FNP-C is [facility]. kb 22:09 Hector De Dios MD is Attending Physician. kb 22:12 Triage completed. cm10 22:12 Arm band placed on Patient placed in an exam room, on a stretcher, on hall monitor, cm10 on pulse oximetry. EKG completed in triage. Results shown to MD. 22:12 EKG done, by ED staff, reviewed by Waleska ARVIZU. cm10 22:23 Wilfredo Lin, RN is Primary Nurse. tm6 22:51 Initial lab(s) drawn, by sd, sent to lab. Inserted saline lock: 20 gauge in right hand, rv using aseptic technique. Blood collected. 22:52 XRAY Chest (1 view) In Process Unspecified. EDMS 22:56 Basic Metabolic Panel Sent. tm6 22:56 CBC with Diff Sent. tm6 22:56 Troponin HS Sent. tm6 22:59 Patient has correct armband on for positive identification. Placed in gown. Bed in low tm6 position. Call light in reach. Side rails up X 1. Provided Education on: plan of care. Client placed on continuous cardiac and pulse oximetry monitoring. NIBP monitoring applied. surveillance monitor on. Pulse ox on. NIBP on. Door closed. Noise minimized. Lights dimmed. 22:59 O2 via room air. tm6 0404 00:40 Troponin High Sensitivity Sent. tm6 02:09 CT Aorta for Dissection In Process Unspecified. EDMS 03:13 No provider procedures requiring assistance completed. IV discontinued, intact, rv bleeding controlled, No redness/swelling at site. Pressure dressing applied. Administered Medications: No medications were administered Medication: 02/23 22:59 VIS not applicable for this client. tm6 Outcome: 02/24 03:08 Discharge ordered by . bing 03:13 Discharged to home ambulatory, rv 03:13 Condition: good 03:13 Discharge instructions given to patient, Instructed on discharge instructions, follow up and referral plans. Demonstrated understanding of instructions, follow-up care, 03:14 Patient left the ED. rv Signatures: Dispatcher [employer] EDMS Waleska Farah, CHILD WATCH ATTENDANT-C CHILD WATCH ATTENDANT-Ckb Galen Pettit, RN RN rv Hector De Dios MD MD sp4 Zeynep Torres RN RN cm10 Twila Romo 2 Wilfredo Lin RN RN tm6
--- NOTE | 2024-02-25 03:09 | EDPHYS ---
Physician Documentation [facility] Name: Miko Martínez Age: 38 yrs Sex: Male : 1985 Arrival Date: 02/24/2024 Time: 21:55 Bed 19 Private MD: ED Physician Hector De Dios HPI: 02/23 23:04 This 38 yrs old Male presents to ER via Ambulatory with complaints of Chest Pain. kb 23:04 Pt is a 38 year old male who presents for chest pain that started 2 weeks ago. Denies kb any other symptoms. States the pain has been constant but the intensity changes. Denies personal medical history, but reports family cardiac history.. Historical: - Allergies: 22:12 PENICILLINS; cm10 - Home Meds: 22:12 None [Active]; cm10 - PMHx: 22:12 None; cm10 - PSHx: 22:12 None; cm10 - Immunization history:: Adult Immunizations up to date. - Infectious Disease History:: Denies. - Social history:: Smoking status: unknown. ROS: 23:06 Constitutional: As per HPI kb Exam: 23:06 Constitutional: This is a well developed, well nourished patient who is awake, alert, kb and in no acute distress. Head/Face: Normocephalic, atraumatic. ENT: Moist Mucous membranes Cardiovascular: Regular rate Respiratory: Respirations even and unlabored. No increased work of breathing. Talking in full sentences Skin: Warm, dry with normal turgor. Normal color. MS/ Extremity: Pulses equal, no cyanosis. Neurovascular intact. Full, normal range of motion. Neuro: Awake and alert, GCS 15, oriented to person, place, time, and situation. Moves all extremities. Normal gait. Vital Signs: 22:11 BP 143 / 85; Pulse 82; Resp 19; Temp 98.9; Pulse Ox 96% on R/A; Weight 136.08 kg; cm10 Height 5 ft. 11 in. ; Pain 4/10; 22:56 BP 139 / 83; Pulse 81; Pulse Ox 95% on R/A; Pain 4/10; tm6 23:37 BP 126 / 85; Pulse 75; Pulse Ox 95% on R/A; tm6 02/24 00:28 BP 130 / 65; Pulse 77; Pulse Ox 96% on R/A; tm6 01:25 BP 140 / 79; Pulse 69; Pulse Ox 95% on R/A; Pain 3/10; tm6 02:23 Pulse 69; Pulse Ox 98% on R/A; tm6 03:12 BP 138 / 76; Pulse 66; Resp 16; Temp 98; Pulse Ox 96% on R/A; rv 02/23 22:11 Body Mass Index 41.84 (136.08 kg, 180.34 cm) cm10 02/23 22:11 Pain Scale: Adult cm10 22:56 Pain Scale: Adult tm6 01:25 Pain Scale: Adult tm6 MDM: 02/23 22:10 Patient medically screened. kb 23:06 Differential diagnosis: Acute IL, abnormal ekg, gerd. Data reviewed: vital signs, kb nurses notes. 02/24 00:53 Transition of care: After a detail discussion of the patient's case, care is kb transferred to Hector De Dios MD. 01:25 ED course: EXAMINATION: XR CHEST 1 VIEW INDICATION: Male, 38 years old, CHEST PAIN sp4 TECHNIQUE: 1 view COMPARISON(S): None. FINDINGS: Soft tissue attenuation and beam underpenetration limit assessment. SUPPORT DEVICES: Overlying leads. LUNGS/PLEURA: Perihilar interstitial prominence. No consolidation, pleural effusion or pneumothorax. HEART/MEDIASTINUM: Normal size and configuration. OTHER: No acute osseous findings. IMPRESSION: Interstitial markings suggestive of edema or pneumonitis/bronchitis. Artifactual appearance related to exam technique is also possible. No consolidation. . 03:03 ED course: CLINICAL HISTORY: chest pain COMPARISON: None. TECHNIQUE: CT CHESTABDOMEN sp4 PELVIS ANGIOGRAPHYWITH IV CONTRAST on 02/25/2024 1:36 AM CDT. MIPS reconstructions were generated. This exam was performed according to our departmental dose-optimization program, which includes automated exposure control, adjustment of the mA and/or kV according to patient size and/or use of iterative reconstruction technique. FINDINGS: Vascular: Thoracic aorta is normal in course and caliber without aneurysm or dissection. Pulmonary arteries are suboptimally opacified. Abdominal aorta is normal in course and caliber without aneurysm. Pelvic arteries are patent without aneurysm or occlusion. Chest: The heart is normal in size. There is no pericardial effusion. Intrathoracic lymph nodes are not enlarged. There is no pleural effusion, pleural thickening or pneumothorax. Central airways are patent. Lungs are clear with no consolidation, mass or interstitial lung disease. Abdomen: Liver is fatty in attenuation. There is no biliary dilatation. Gallbladder is normal in appearance. The pancreas and spleen are normal in appearance. The adrenal glands and kidneys are unremarkable. There is no free air. There is no retroperitoneal adenopathy. Pelvis: There is mild diverticulosis of the distal colon. Urinary bladder is unremarkable. There is no free fluid. Appendix is normal. Skeleton: There are no acute osseous findings. No suspicious bony lesions. IMPRESSION: No aortic dissection or aneurysm. No pulmonary embolus. No definite acute inflammatory process. . 02/23 22:14 Order name: Basic Metabolic Panel; Complete Time: 23:37 kb 02/23 22:14 Order name: CBC with Diff; Complete Time: 23:30 kb 02/23 22:14 Order name: Troponin HS; Complete Time: 23:37 kb 02/24 00:26 Order name: Troponin High Sensitivity; Complete Time: 01:21 kb 02/23 22:14 Order name: XRAY Chest (1 view) kb 02/24 01:36 Order name: CT Aorta for Dissection sp4 02/23 22:14 Order name: EKG; Complete Time: 22:14 kb 02/23 22:14 Order name: Cardiac monitoring; Complete Time: 22:56 kb 02/23 22:14 Order name: EKG - Nurse/Tech; Complete Time: 22:56 kb 02/23 22:14 Order name: IV Saline Lock; Complete Time: 22:56 kb 02/23 22:14 Order name: Labs collected and sent; Complete Time: 22:56 kb 02/23 22:14 Order name: O2 Per Protocol; Complete Time: 22:56 kb 02/23 22:14 Order name: O2 Sat Monitoring; Complete Time: 22:56 kb Administered Medications: No medications were administered Disposition: 03:03 Co-signature as Attending Physician, Hector De Dios MD I agree with the assessment sp4 and plan of care. I reviewed the patient's care provided by Advanced Practice Provider \T\ agree w/ the diagnosis \T\ care plan. I personally saw the pt \T\ performed a substantive portion of the visit, incldng all aspects of the (History/Exam/Medical Decision Making). Disposition Summary: 02/25/24 03:08 Discharge Ordered Problem: new sp4 Symptoms: have improved sp4 Condition: Stable sp4 Diagnosis - Chest pain, unspecified sp4 - Non cardiac chest pain sp4 Followup: sp4 - With: Private Physician - When: 7 - 10 days - Reason: Recheck today's complaints Discharge Instructions: - Discharge Summary Sheet sp4 - Nonspecific Chest Pain, Adult, [id number] sp4 Forms: - Patient Portal Instructions sp4 Signatures: Dispatcher [employer] EDMS Waleska Farah, VASCULAR SONOGRAPHER-C VASCULAR SONOGRAPHER-Hector Calvillo MD MD sp4 Zeynep Torres RN RN cm10 Corrections: (The following items were deleted from the chart) 02/23 22:14 22:14 BASIC METABOLIC PANEL+C.LAB.BRZ ordered. EDMS EDMS 22:14 22:14 CBC+H.LAB.BRZ ordered. EDMS EDMS 22:14 22:14 Troponin High Sensitivity+C.LAB.BRZ ordered. EDMS EDMS 02/24 01:36 01:36 Angio Aorta For Dissection+CT.RAD.BRZ ordered. EDMS EDMS
[2024-02-25 03:36] VITALS: O2SAT 96
[2024-02-25 04:03] VITALS: BP 138/76; TEMP 98
--- NOTE | 2024-02-25 11:41 | RAD REPORT ---
EXAM DESCRIPTION: RAD - Chest Single View - 02/24/2024 10:50 pm CLINICAL HISTORY: Male, 38 years old, CHEST PAIN TECHNIQUE: 1 view COMPARISON: None. FINDINGS: Soft tissue attenuation and beam underpenetration limit assessment. SUPPORT DEVICES: Overlying leads. LUNGS/PLEURA: Perihilar interstitial prominence. No consolidation, pleural effusion or pneumothorax. HEART/MEDIASTINUM: Normal size and configuration. OTHER: No acute osseous findings. IMPRESSION: Interstitial markings suggestive of edema or pneumonitis/bronchitis. Artifactual appeara nce related to exam technique is also possible. No consolidation. Electronically signed by: Raulito Zaldivar MD 02/24/2024 11:01 PM CDT Due to temporary technical issues with the PACS/Fluency reporting system, reports are being signed by the in house radiologist without review as a courtesy to ensure prompt reporting. The interpreting r adiologist is fully responsible for the content of the report.
--- NOTE | 2024-02-25 11:43 | RAD REPORT ---
EXAM DESCRIPTION: CT - Angio Aorta For Dissection - 02/25/2024 6:26 am CLINICAL HISTORY: Chest pain COMPARISON: None. TECHNIQUE: CT CHEST ABDOMEN PELVIS ANGIOGRAPHY WITH IV CONTRAST on 02/25/2024 1:36 AM CDT. MIPS recons tructions were generated. This exam was performed according to our departmental dose-optimization program, which includes autom ated exposure control, adjustment of the mA and/or kV according to patient size and/or use of iterati ve reconstruction technique. FINDINGS: Vascular: Thoracic aorta is normal in course and caliber without aneurysm or dissection. P ulmonary arteries are suboptimally opacified. Abdominal aorta is normal in course and caliber without aneurysm. Pelvic arteries are patent without aneurysm or occlusion. Chest: The heart is normal in size. There is no pericardial effusion. Intrathoracic lymph nodes are n ot enlarged. There is no pleural effusion, pleural thickening or pneumothorax. Central airways are patent. Lungs a re clear with no consolidation, mass or interstitial lung disease. Abdomen: Liver is fatty in attenuation. There is no biliary dilatation. Gallbladder is normal in appe arance. The pancreas and spleen are normal in appearance. The adrenal glands and kidneys are unremark able. There is no free air. There is no retroperitoneal adenopathy. Pelvis: There is mild diverticulosis of the distal colon. Urinary bladder is unremarkable. There is n o free fluid. Appendix is normal. Skeleton: There are no acute osseous findings. No suspicious bony lesions. IMPRESSION: No aortic dissection or aneurysm. No pulmonary embolus. No definite acute inflammatory p rocess. Electronically signed by: Thomas Carolina MD 02/25/2024 02:36 AM CDT Due to temporary technical issues with the PACS/Fluency reporting system, reports are being signed by the in house radiologist without review as a courtesy to ensure prompt reporting. The interpreting r adiologist is fully responsible for the content of the report.
--- NOTE | 2024-02-26 11:57 | EKG ---
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
== END 2024-02-25 03:14 | disposition home or self-care (01) ==
LOC: ER 21:55
DX: R07.89 Other chest pain (principal); Z88.0 Allergy status to penicillin
CPT/HCPCS: 93005; 85025; 80048; 36415; 84484 ×2; 71275; 74175; 71045; 99285; Q9967

== ENCOUNTER 2024-08-25 11:06 | Emergency (ER) | payer OTHER ==
--- OUTSIDE RECORDS SUMMARY | 2024-08-25 11:11 | XMS REPORT | Continuity of Care Document ---
Author Name Unknown Address [address] [place] [address] [facility] thconnect Address [address] [facility] [address] [place] [address] Care Team Providers Care Sheather Name Role Phone Cecy Morrell MD Primary Care Physician [phone] Jorge Mukherjee Attending Clinician Unavailab le FOG_A_Provider Attending Clinician Unavailable Cecy Morrell MD Attending Clinician [phone] Doctor Unassigned, Eagar Attending Clinician U AIDE Jackson Attending Clinician UnaCECY Gibbons Attending Clinician Unavailable Apolinar Calderon Attending Clinician Unavailable Syeda Brannon Admitting Clinician Unavaila ble FOG_A_Provider Admitting Clinician Unavailable Payers Payer Name Policy Type Policy Number Effective Date Expirati on Date Source [facility] CHOICE PLUS (PPO) [id number] 2023 00:00:00 Problems Condition Name Condition Details Condition Category Status Onset Date Resolution Date Last Treatment Date Treating Clinician Comments Source No known active problems No known active problems Disease [facility] Allergies, Adverse Reactions, Alerts Allergy Name Allergy Type Status Severity Reaction(s) Onset Date Inactive Date Treating Clinician Comments Source No Known Allergie s DA Active U 2021-11 00:00: 00 [facility] PENICILL INS Drug Class Active Rash 08-14 00:00: 00 [facility] Penicill ins Propensi ty to adverse reaction s Active Rash 08-14 00:00: 00 [facility] Penicill ins Propensi ty to adverse reaction s Active Rash 08-14 00:00: 00 [facility] NO KNOWN ALLERGIE S Drug Class Active [facility] Social History Social Habit Start Date Stop Date Quantity Comments Source Exposure to SARS-CoV-2 (event) 2022-10-20 00:00:00 2022-10-30 07:45:00 Not sure [facility] Tobacco use and exposure 2022-08-22 00:00:00 2022-08-22 00:00:00 Smokeless tobacco non-user [facility] Sex Assigned At 1985 00:00:00 1985 00:00:00 [facility] Smoking Status Start Date Stop Date Source Tobacco smoking consumption unknown [facility] Never smoked tobacco [facility] Medications Ordered Medication Name Filled Medication Name Start Date Stop Date Current Medication? Ordering Clinician Indication Dosage Frequency Signature (SIG) Comments Components Source clotrimazol e-betametha sone cream 12-31 00:00: 00 Yes [id number] Apply to area(s) 2 (two) times daily. [facility] semaglutide (OZEMPIC) 1 mg/dose (2 mg/1.5 mL) [facility] 2021-11 00:00: 00 Yes [id number] 104 inject 1 mg base under the skin weekly. [facility] semaglutide (OZEMPIC) 1 mg/dose (2 mg/1.5 mL) [facility] 2021-11 1- 00:00: 00 11-20 00:00 :00 No [id number] 104 inject 1 mg base under the skin weekly. [facility] semaglutide (OZEMPIC) 0.25 mg or 0.5 mg(2 mg/1.5 mL) [facility] 2021-11 0-06 00:00: 00 09-25 00:00 :00 No [id number] 104 .5mg inject 0.5 mg under the skin weekly. [facility] clotrimazol e-betametha sone cream 08-22 00:00: 00 12-31 00:00 :00 No [id number] Apply to area(s) 2 (two) times daily. [facility] semaglutide , weight loss, 0.5 mg/0.5 mL PnIj SC injection 08-22 00:00: 00 08-28 00:00 :00 No [id number] 104 .5mg inject 0.5 mg under the skin weekly for 30 days. [facility] No known medications 08-14 10:22: 10 No [facility] Immunizations Ordered Immunization Name Filled Immunization Name Date Status Comments Source Pfizer COVID-19 Vaccine Pfizer COVID-19 Vaccine 2021-08-09 00:00:00 Completed Pfizer COVID-19 Vaccine Pfizer COVID-19 Vaccine 2021-07-09 00:00:00 Completed Vital Signs Vital Name Observation Time Observation Value Comments S ource Systolic blood pressure 2022-09-25 18:54:00 129 mm[Hg] [facility] Diastolic blood pressure 2022-09-25 18:54:00 84 mm[Hg] [facility] Heart rate 2022-09-25 18:54:00 73 /min [facility] Body temperature 2022-09-25 18:25:00 36.61 Tran [facility] Respiratory rate 2022-09-25 18:25:00 20 /min [facility] Body height 2022-09-25 18:25:00 180.3 cm [facility] Body weight 2022-09-25 18:25:00 136.034 kg [facility] BMI 2022-09-25 18:25:00 41.83 kg/m2 [facility] Oxygen saturation in Arterial blood by Pulse oximetry 2022-09-25 18:25:00 96 /min [facility] Systolic blood pressure 2022-08-22 19:21:00 136 mm[Hg] [facility] Diastolic blood pressure 2022-08-22 19:21:00 84 mm[Hg] [facility] Heart rate 2022-08-22 19:21:00 75 /min [facility] Body temperature 2022-08-22 19:21:00 36.17 Tran [facility] Respiratory rate 2022-08-22 19:21:00 20 /min [facility] Body height 2022-08-22 19:21:00 179.1 cm [facility] Body weight 2022-08-22 19:21:00 139.164 kg [facility] BMI 2022-08-22 19:21:00 43.40 kg/m2 [facility] Oxygen saturation in Arterial blood by Pulse oximetry 2022-08-22 19:21:00 96 /min [facility] Systolic blood pressure 2021-08-14 14:27:00 137 mm[Hg] [facility] Diastolic blood pressure 2021-08-14 14:27:00 83 mm[Hg] [facility] Heart rate 2021-08-14 14:27:00 57 /min [facility] Body temperature 2021-08-14 14:27:00 36.28 Tran [facility] Respiratory rate 2021-08-14 14:27:00 18 /min [facility] Body height 2021-08-14 14:27:00 180.3 cm [facility] Body weight 2021-08-14 14:27:00 130.636 kg [facility] BMI 2021-08-14 14:27:00 40.17 kg/m2 [facility] Oxygen saturation in Arterial blood by Pulse oximetry 2021-08-14 14:27:00 97 /min [facility] Procedures Procedure Date / Time Performed Performing Clinician Source REFERRAL- REQUEST/RESPONSE 2022-11-08 06:01:00 Doctor Unassigned, Eagar [facility] ASSIGNMENT OF BENEFITS 2022-08-22 19:10:29 Docto r Unassigned, Eagar [facility] PATIENT QUESTIONNAIRE 2021-08-14 05:01:00 Doctor Unassigned, Eagar [facility] Encounters Start Date/Time End Date/Time Encounter Type Admission Type Attending Clinicians Care Facility Care Department Encounter ID Source 2023-08-15 17:39:00 2023-08-15 19:39:00 Emergency EM Jorge Mukherjee [facility] [id number] [facility] 2023-05-04 00:00:00 2023-05-04 00:00:00 Outpatient FOG_A_Provi briana AOSM AOSM [id number] [facility] 2023-05-01 00:00:00 2023-05-01 00:00:00 Outpatient FOG_A_Provi briana AOSM AOSM [id number] [facility] 2023-04-30 00:00:00 2023-04-30 00:00:00 Outpatient FOG_A_Provi briana AOSM AOSM [id number] [facility] 2023-04-29 00:00:00 2023-04-29 00:00:00 Outpatient FOG_A_Provi briana AOSM AOSM [id number] [facility] 2022-12-31 00:00:00 2022-12-31 00:00:00 Telephone Cecy Morrell [facility] 1..114 350.1.13.10 4.2.7.2.686 [id number] [facility] 2022-11-20 00:00:00 2022-11-20 00:00:00 Refill Cecy Morrell [facility] 1..114 350.1.13.10 4.2.7.2.686 [id number] [facility] 2022-11-08 00:00:00 2022-11-08 00:00:00 Orders Only Doctor Unassigned, Eagar [facility] 1.840.114 350.1.13.10 4.2.7.2.686 [id number] [facility] 2022-10-30 08:40:00 2022-10-30 08:40:00 Outpatient R PORSCHE CECY [facility] [id number] [facility] 2022-10-28 15:09:00 2022-10-28 17:23:00 Emergency EM Apolinar Calderon [facility] [id number] [facility] 2022-09-25 13:20:00 2022-09-25 13:40:00 Office Visit PorscheRachellya [facility] 1.840.114 350.1.13.10 4.2.7.2.686 [id number] [facility] 2022-09-25 13:20:00 2022-09-25 13:20:00 [id number] 2022-09-25 00:00:00 2022-09-25 00:00:00 Letter (Out) Doctor Unassigned, Eagar [facility] 1.0.114 350.1.13.10 4.2.7.2.686 [id number] [facility] 2022-08-22 14:00:00 2022-08-22 14:20:00 Office Visit Cecy Morrell [facility] 1.840.114 350.1.13.10 4.2.7.2.686 [id number] [facility] 2022-08-22 14:00:00 2022-08-22 14:00:00 Outpatient R MORRELL [facility] [id number] [facility] 2022-08-22 00:00:00 2022-08-22 00:00:00 Orders Only Doctor Unassigned, Eagar [facility] 1.840.114 350.1.13.10 4.2.7.2.686 [id number] [facility] 2022-08-22 00:00:00 2022-08-22 00:00:00 Telephone Cecy Morrell [facility] 1.2.840.114 350.1.13.10 4.2.7.2.686 [id number] [facility] 2021-08-14 09:20:00 2021-08-14 09:20:00 Outpatient R CECY MORRELL [facility] [id number] [facility] 2021-08-14 08:54:28 2021-08-14 09:14:28 Office Visit Cecy Morrell [facility] 1.2.840.114 350.1.13.10 4.2.7.2.686 [id number] [facility] 2021-08-14 00:00:00 2021-08-14 00:00:00 Orders Only Doctor Unassigned, Eagar [facility] 1.2.840.114 350.1.13.10 4.2.7.2.686 [id number] [facility] 2021-08-09 00:00:00 2021-08-09 00:00:00 Outpatient [facility] [id number] [facility] 2021-07-09 00:00:00 2021-07-09 00:00:00 Outpatient [facility] [id number] [facility] Results Test Description Test Time Test Comments Results Result Co mments Source POC STREP GROUP A [id number] 19:15:00* Test Item Value Reference Range Interpretation Comme nts POC STREP GROUP A QUAL (test code = EDSTREP) Negative Negative Testing performe d at:[facility] [address] [place], [place] [address]ZX-ACM Strep-A is a rapid, instrument-based, molecular invitro diagnostic test utilizing isothermal nucleic acidamplification technology for the qualitative detection ofStreptococcus pyogenes URINALYSIS [id number] 18:47:00* Test Item Value Reference Range Interpretation Comme nts POC URINE COLOR (test code = EDCOLU) Yellow Yellow Testing performe d at:[facility] [address] [place] [address] POC URINE CLARITY (test code = EDCLARITY) [...] code = EDLEUK) Negative Negative POC TROPONIN [id number] 18:39:00* Test Item Value Reference Range Interpretation Comme [facility] POC TROPONIN I (test code = EDTROPI) <0.05 ng/mL <0.05 N Testing performe d at:[facility] [address] [place] [address]"Point of Care test critical value notification anddocumentation [...] of temporalchanges in troponin levels. POC LACTIC [id number] 18:36:00* Test Item Value Reference Range Interpretation Comme nts POC LACTIC ACID (test code = POCLAC) 1.2 mmol/l 0.9-1.7 N COMPREHENSIVE METABOLIC [id number] 18:32:00* Test Item Value Reference Range Interpretation Comme nts POC SODIUM (test code = CONSUELO) 141 mmol/L 134-147 N Testing performe d at:[facility] [place] [address] [place], [place] [address] POC POTASSIUM (test code = EDK) 3.8 [...] The assay for creatinine is traceable tothe IDMI reference method. Chronic kidney disease (CKD) maynot [...] U/L 20-125 N - XR CHEST 2 [id number] 18:25:00 [facility] : 1985 Sex: M FAX: Jorge Mukherjee [place]: [place] St: PRE FAX: Syeda Brannon [employer] Name: ERICKA FRIAS FSED : 1985 Age/S: 37/M [address] [facility] Unit #: [id number] Loc: [place] [address] Phys: Jorge Mukherjee MD Acct: [id number] Dis Date: Status: PRE ER PHONE #: Exam Date: 08/15/2023 1820 FAX #: Reason:sob, fever, eval for pna EXAMS: CPT CODE: [id number] XR CHEST 2 V 29507 Location: H3 CHEST X-RAY: PA and lateral projection, 2 views conducted 08/15/23 CLINICAL HISTORY: Shortness of breath, fever. This is a 37-year-old patient presenting to the ER COMPARISON EXAMS: Chest x-ray examination conducted 10/28/22 FINDINGS: Heart, lungs, and mediastinal structures are within normal limits. No evolving process or pleural based finding. No active CHF or pneumonia. No groundglass density. No evolving lobar consolidation. No abnormal air collection. IMPRESSION: No acute finding at 1825 Reported and signed by: Elis Tate M.D. CC: Jorge Mukherjee MD; Syeda Brannon Technologist: Shari Maher RT(R)(CT) Trnscrd Date/Time/By: 08/15/2023 (1824) : By: [email or web address] Orig Print D/T: S: 08/15/2023 (1827) PAGE 1 Signed Report COMPLETE BLOOD COUNT (CBC)2023-08-15 18:18:00* Test Item Value Reference Range Interpretation Comme nts POC WHITE BLOOD CELL (test code = EDWBC) 5.2 10 3/uL 3.9-9.4 N Testing perf ormed at:[facility] [address] [place], [place] [address] POC RED BLOOD CELL (test code = [...] 11.5 fL 8.7-12.6 N Coronavirus 2019 nCoV [id number] 18:14:00* Test Item Value Reference Range Interpretation Comme nts Coronavirus 2019 nCoV Bedside (test code = [id number]) Negative Negative The [employer] ID NO W utilizes isothermal [place] EnzymeAmplification Reaction (NEAR) technology in the qualitativedetection of infectious diseases. With NEAR technology,amplified target detection is achieved with the use offluorescently labeled molecular beacons, comparable to PCRtechniques -----Negative results should be treated as presumptive and, ifinconsistent with clinical signs and symptoms or necessaryfor patient management, should be tested with an alternativemolecular assay. Negative results do not preclude EQAP-DgE-6ftqkkgluj and should not be used as the sole basis forpatient management decisions. Negative results should beconsidered in the context of a patient's recent exposures,history, presence of clinical signs and symptoms consistentwith COVID-19. BASIC METABOLIC [id number] 16:25:00* Test Item Value Reference Range Interpretation [...] CA) 9.1 mg/dL 8.0-10.5 N TROP-I HIGH [id number] 16:25:00* Test Item Value Reference Range Interpretation [...] URL. These results were obtained using Siemens AtePownce IM TnIHreagent. Results from different methodologies should not becompared to one another as quantitative results and URLs mayvary by method. CBC W/AUTO [id number] 16:08:00* Test Item Value Reference Range Interpretation [...] = LALITA) NO - XR CHEST 1 [id number] 00:00:00 [facility] : 1985 Sex: M FAX: Syeda Brannon [facility] [place]: St: REG FAX: Apolinar Calderon MD Name: ERICKA FRIAS [facility] : 1985 Age/S: 36/M [address] [place] [address] Unit #: [id number] Loc: [place] [address] Phys: Apolinar Calderon MD Acct: [id number] Dis Date: Status: REG ER PHONE #: [phone] Exam Date: 10/28/2022 1614 FAX #: [phone] Reason: CP EXAMS: CPT CODE: [id number] XR CHEST 1 V 18858 PROCEDURE INFORMATION: Exam: XR Chest Exam date [...] bone lesions. IMPRESSION: No acute cardiopulmonary findings. E lectronically Signed by Torres Carr on 10/28/2022 at 1656 Reported and signed by: Cody Carr M.D. CC: Syeda Brannon; Apolinar Calderon MD Technologist: Telma Jones, RT(R) Trnscrd Date/Time/By: 10/28/2022 (1655) : By: [email or web address] Orig Print D/T: S: 10/28/2022 (1655) PAGE 1 Signed Report Notes Date/Time Note Provider Source 2023-08-15 17:58:00 [facility] ([facility]) EMERGENCY PROVIDER REPORT REPORT#:[id number] REPORT STATUS: Signed DATE:08/15/23 TIME: 1757 PATIENT: ERICKA FRIAS UNIT #: [id number] ROOM/BED: AGE: 37 SEX: M PCP PHYS: Syeda Brannon SERVICE AUTHOR: Jorge Mukherjee MD * ALL edits or amendments must be made on the electronic/computer document * HPI-Fever Free Text HPI Notes Free Text HPI Notes 37-year-old no significant past medical history, here with 3 days of congestion, fatigue, fever and stiff neck that developed earlier today. 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 Denies any trauma. Reports several children at home who have had infectious symptoms, tested negative for COVID, flu, strep. Patient reports soreness but not stiffness in neck, no vision changes, other back pain, generally feels fatigued and achy. Reports dyspnea, particularly on walking. Denies any chest pain, abdominal pain. General Initial Greet Date/Time 08/15/23 174 PCP Carlie Brannon ([facility]) Presentation Chief Complaint Fever, currently Review of Systems Free Text ROS Notes Free Text ROS Notes Review of systems was performed, pertinent positives and negatives noted in HPI Past Medical History - Adult Stated Complaint FEVER, STIFF NECK Allergies Coded Allergies: No Known Allergies (10/28/22) Calculated Suicide Risk (nurs) No risk Smoking status for patients 13 years old or older: Never Smoker Physical Exam Vital Signs Vital Signs First Documented: Result Date Time Pulse Ox 96 [...] of Vital Signs Reviewed Free Text PE Notes Free Text PE Notes GEN/CONST: awake, alert MS HEAD: normocephalic EYES: EOMI, no scleral icterus EARS/NOSE/THROAT: airway patent, mucous membranes moist MS NECK: supple, full range of motion, no tenderness to palpation, no meningismus RESPIRATORY/CHEST: breath sounds equal bilaterally, no respiratory distress CARDIOVASCULAR: Tachycardic rate and regular rhythm ABDOMEN/GI: no distension, soft and nontender MS BACK: painless range of motion, non-tender, negative Kernig and Brudzinski sign MS UPPER EXT: inspection normal, no deformity MS LOWER EXT: inspection normal, no deformity SKIN: warm, dry, intact NEURO: normal speech, no motor deficits Interpretation Diagnostics Lab Results Interpretation Results Laboratory Tests: 08/15 08/15 08/15 08/15 1908 1906 1845 1837 Chemistry POC Troponin I (<0.05 ng/mL) <0.05 Serology POC Influenza A Ag (Negative) Negative POC Influenza B Ag (Negative) Negative POC Group A Strep Rpd (Negative) Negative Urines POC Urine Color (Yellow) Yellow POC Urine Appearance (Clear) Clear POC Urine pH (5.0 - 8.0) 7.0 POC Ur Specif [place] (1.001 - 1.035) 1.025 POC Urine Protein [...] # (0.9 - 3.0 k/mm3) 1.30 POC Dawson # (0.2 - 1.1 10 3/uL) 0.5 POC Lymphocytes % (16.8 - 42.5 %) 24.2 POC Neutrophils % (46.4 - 74.7 %) 66.5 Serology SARS CoV-2 RNA Rapid PERICO (Negative) Negative Microbiology: Date/Time Procedure - Status Source Growth 08/15 1754 MRSA DNA Surveillance Screen - COLB NASAL 08/15 161 Blood Culture - RES BLOOD 08/15 161 Blood Culture Gram Stain - RES BLOOD 08/15 1553 Blood Culture - RES BLOOD 08/15 155 Blood Culture Gram Stain - RES BLOOD Recent Impressions: RADIOLOGY - XR CHEST 2 V 08/15 1820 Report Impression - Status: SIGNED Entered: 08/15/20231827 IMPRESSION: No acute finding Impression By: Lewis - Elis Tate M.D. ECG #1 Interpretation Text/Dict Note EKG from 08/15/2023 at 1837, performed for sepsis screen Interpreted by myself, ED physician Sinus rhythm, rate 89 Normal axis Normal intervals No ST elevation or ST depression suggestive of ischemia Re-Evaluation MDM Free Text MDM Notes Free Text MDM Notes 37-year-old otherwise healthy here for several days of fever, fatigue, new neck pain Considered meningitis, patient with very supple neck, full range of motion, negative Kernig and Budzinski, no indication for lumbar puncture at this time Given fever and heart rate, meets SIRS criteria with infectious signs and symptoms will treat as sepsis with full sepsis protocol and fluid bolus adjusted for IBW Given shortness of breath will treat for possible pulmonary causes with ceftriaxone and azithromycin as initial antimicrobial coverage Re-Evaluation/Progress Re-Evaluation/Progress Text/Dict Note Patient with symptomatic improvement, improvement in vital sign, no leukocytosis , no other signs of organ dysfunction/damage, no lactic acid elevation Chest x-ray independently reviewed and interpreted by me, ED physician. No focal consolidation suggestive of pneumonia, no pneumothorax. 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 Discussed strict return precautions. All caregivers present expressed understanding and agreement with plan along with the patient. Discharged in stable condition. ED Course Medication(s) Ordered Medication(s) Ordered: Anti-Infective Agents Sig/Clarisse Start time Last Medication Dose Route Stop Time Status Admin Azithromycin 500 MG X1ED STA 08/15 1753 DC 08/15 Sodium Chloride 250 ML IV 08/15 1852 1813 Ceftriaxone Sodium 1,000 MG X1ED STA 08/15 1753 DC 08/15 Sodium Chloride 10 ML IV 08/15 1755 1813 Central Nervous System Agents Sig/Clarisse Start time Last Medication Dose Route Stop Time Status Admin Acetaminophen 1,000 MG X1ED STA 08/15 1753 DC 08/15 PO 08/15 1754 1806 Ibuprofen 600 MG X1ED STA 08/15 1753 DC 08/15 PO 08/15 175 1806 Electrolytic, Caloric, And Risa Sig/Clarisse Start time Last Medication Dose Route Stop Time Status Admin Sodium Chloride 2,259 ML X1ED STA 08/15 1753 DC 08/15 IV 08/15 1754 1810 Patient Discharge Departure Vital Signs/Condition Vital Signs First Documented: Result Date Time Pulse Ox 96 08/15 1744 B/P 148/80 08/15 1744 B/P Mean 102 08/15 1744 O2 Delivery Room air 08/15 174 Temp 37.8 08/15 174 Pulse 101 08/15 1744 Resp 16 08/15 174 Last Documented: Result Date Time Pulse Ox 97 08/15 1936 B/P 138/80 08/15 193 B/P Mean 99 08/15 193 Temp 36.8 08/15 193 Pulse 89 08/15 193 Resp 15 08/15 193 O2 Delivery Room air 08/15 174 All vital signs available at the time of this entry have been reviewed. Condition Stable, Improved Clinical Impression Clinical Impression Primary Impression: Viral syndrome Time of Impression 1919 Disposition Decision Discharge )( Discharged to Home Yes )( Time 1919 )( Date 08/15/23 Discharge/Care Plan Patient Instructions ED Fever Control (Adult), ED Viral Syndrome (Adult) Additional Instructions For pain, you can take 400mg of Ibuprofen every 4 hours and 650 mg of Acetaminophen every 6 hours. They are available over the counter at most pharmacies and grocery stores. Referrals Referral: Primary Care Follow-Up: Call for appointment at 0619 RPT #:[id number] END OF REPORT [facility] 2022-10-28 16:09:00 [facility] ([facility]) EMERGENCY PROVIDER REPORT REPORT#:[id number] REPORT STATUS: Signed DATE:10/28/22 TIME: 1609 PATIENT: ERICKA FRIAS UNIT #: [id number] ROOM/BED: AGE: 36 SEX: M PCP PHYS: Syeda Brannon [employer] SERVICE AUTHOR: Apolinar Calderon MD * ALL edits or amendments must be made on the electronic/computer document * HPI-General Illness Free Text HPI Notes Free Text HPI Notes 36-year-old male with no segment past medical history. 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 Patient has noted chest pain for the past 3 days, dull, radiating to the right side and arm. No change with motion, does not radiate to back. No diaphoresis, nausea vomiting, leg swelling. Patient took an aspirin, no improvement. Patient worried given that they did an EKG on the chart, noted some EKG changes General Initial Greet Date/Time 10/28/22 1557 Presentation Chief Complaint Chest pain Review of Systems ROS Statements All systems rev neg except as marked. Review of Systems Constitutional Denies: Fever. Respiratory Denies: Cough, productive, Shortness of breath. Cardiovascular Reports: Chest pain. Denies: Dyspnea on exertion, Edema, Orthopnea, Syncope. Past Medical History - Adult Stated Complaint CP Allergies Coded Allergies: No Known Allergies (10/28/22) Calculated Suicide Risk (nurs) No risk Pt reports no significant: Past medical history, Past surgical history Smoking status for patients 13 years old or older: Never Smoker Physical Exam Vital Signs Vital Signs First Documented: Result Date Time Pulse Ox 97 10/28 1521 B/P 143/90 / 1521 B/P Mean 107 10/28 1521 O2 Delivery Room air 12 1521 Temp 36.8 12/ 1521 Pulse 66 12 1521 Resp 16 10/28 1521 Last Documented: Result Date Time Pulse Ox 97 10/28 1521 B/P 143/90 12/ 1521 B/P Mean 107 10/28 1521 O2 Delivery Room air 10/28 1521 Temp 36.8 12 1521 Pulse 66 12 1521 Resp 16 10/28 1521 Review of Vital Signs Reviewed Basic Physical Exam Basic PE GEN: Well appearing/NAD, HEAD: Atraumatic/NC, EYES: PERRL, conj clear, ENT: Membranes moist, NECK: Supple, RESP: No resp distress, CV: Reg rate rhythm, ABD: Soft/non-tender, EXT: No gross abnormality, SKIN: No rashes, warm/ dry, NEURO: alert oriented, NEURO: gross movement NL, PSYCH: NL thought content Physical Exam General/Const General/Const Awake, Alert, Well appearing Resp/Chest Respiratory/Chest Breath sounds NL, Breath sounds = bilat, No respiratory distress, No rales, No rhonchi, No wheezing Cardiovascular Cardiovascular Heart rate NL, Regular rhythm, Heart sounds NL, Cap refill not delayed, Peripheral circulation NL Abdomen/GI Abdomen/GI Soft, Non-tender, No guarding, No rebound MS Lower Extrem Lower Ext/Pelvis/MS Inspection NL, No swelling, Non-tender, No erythema, No deformity, Neurologic intact, Vascular intact, No edema Neurologic Neurologic Oriented X3, Speech NL, No motor deficits, No sensory deficits Interpretation Diagnostics Lab Results Interpretation Results Laboratory Tests 10/28/22 1559: [Embedded Image Not Available] Laboratory Tests: 10/28 1559 Chemistry Sodium (134 - [...] (Auto) (14.0 - 32.0 %) 41.5 H Dawson % (Auto) (4.8 - 9.0 %) 8.6 Eos % (Auto) (0.3 - 3.7 %) 1.1 Baso % (Auto) (0.0 - 2.0 %) 0.8 Neut # (Auto) (2.0 - 7.6 x10 3/uL) 3.17 Lymph # (Auto) (1.0 - 3.8 x10 3/uL) 2.75 Dawson # (Auto) (0.1 - 0.8 x10 3/uL) [...] (0.0 - 0.1 x10 3/uL) 0.00 Recent Impressions: RADIOLOGY - XR CHEST 1 V 10/28 1614 Report Impression - Status: SIGNED Entered: 10/28/2022 8236 IMPRESSION: No acute cardiopulmonary findings. Impression By: [email or web address] - Cody Carr M.D. ECG #1 Interpretation Text/Dict Note 1600 - EKG reviewed and interpreted by myself - NSR rate 86 - Normal rate, Normal sinus rhythm, Normal Intervals and axis - No findings suggestive of acute ischemia. no STEMI, Adequate tracing Re-Evaluation MDM Free Text MDM Notes Free Text MDM Notes 36-year-old male with chest pain, right-sided, minimal risk factors - chest pain non-pressure, not assoc with dyspnea or diaphoresis - LCTAB, normal heart sounds, no unilateral leg swelling. Normal distal pulses - Heart score low risk, Wells score low likelihood of PE or DVT, PERC 0. We will work-up including labs, likely discharge with cardiology follow-up ED Course Medication(s) Ordered Medication(s) Ordered: Central Nervous System Agents Sig/Clarisse Start time Last Medication Dose Route Stop Time Status Admin Ketorolac 15 MG X1ED STA 10/28 1609 DC Tromethamine IV 10/28 1610 Patient Discharge Departure Vital Signs/Condition Vital Signs First Documented: Result Date Time Pulse Ox 97 10/28 1521 B/P 143/90 / 1521 B/P Mean 107 10/28 1521 O2 Delivery Room air 10/28 1521 Temp 36.8 12 1521 Pulse 66 12 1521 Resp 16 10/28 1521 Last Documented: Result Date Time Pulse Ox 97 10/28 1521 B/P 143/90 12/ 1521 B/P Mean 107 / 1521 O2 Delivery Room air 10/28 1521 Temp 36.8 10/28 1521 Pulse 66 10/28 1521 Resp 16 10/28 1521 All vital signs available at the time of this entry have been reviewed. Clinical Impression Clinical Impression Primary Impression: Chest pain Disposition Decision Discharge )( Discharged to Home Yes )( Time 1704 )( Date 10/28/22 Discharge/Care Plan Counseled Regarding Diagnosis, Lab results, Imaging studies, Need for follow-up, When to return to ED Patient Instructions ED Chest Pain, Uncertain Cause Additional Instructions You were seen in the ER for chest [...] your primary care physician in 1 week Referrals Provider Referral: Lia Jacobo MD Address: [id number] [address] at 2490 RPT #:[id number] END OF REPORT [facility]
[2024-08-25 12:14] LABS: Hematocrit 45.5 % (39.6-49.0); Hemoglobin 15.5 g/dL (13.6-17.9); MCH 29.7 pg (27.0-35.0); MCHC 34.1 g/dL (32.0-36.0); MPV 8.8 fL (7.6-11.3); Platelets 190 thou/uL (152-406); RBC Red Blood Cell Count 5.22 M/uL (4.33-5.43); Red Cell Distribution Width 13.3 % (12.1-15.2)
[2024-08-25 12:25] LABS: Anion Gap 7.7 mEq/L (5.0-15.0); Potassium 3.7 mEq/L (3.5-5.1)
--- NOTE | 2024-08-25 15:15 | RAD REPORT ---
EXAMINATION: MRI BRAIN WITHOUT AND WITH CONTRAST CLINICAL INDICATION: Papilledema, Headaches, Blurry vision TECHNIQUE: Multiplanar multisequence MR images of the brain were obtained without and with intravenou s contrast. Unless otherwise specified, incidental findings do not require dedicated imaging follow-up. COMPARISON: No prior exam. FINDINGS: INTRACRANIAL: Diffusion-weighted images show no acute or early subacute infarction. No abnormal brain parenchymal signal. The ventricles are normal in size and morphology. No augmented susceptibility. There is no mass effect or midline shift. No abnormal extraaxial fluid collection. VASCULATURE: Normal signal voids in the larger intracranial arteries and dural venous sinuses. SINUSES: The paranasal sinuses and mastoid air cells are predominantly clear. BONE: The marrow signal pattern is within normal limits. CONTRAST: No pathologic postcontrast enhancement to indicate tumor or infection. OTHER FINDINGS: IMPRESSION: No significant intracranial abnormalities.
--- NOTE | 2024-08-25 15:33 | EDPHYS ---
Physician Documentation [facility] Name: Miko Martínez Age: 38 yrs Sex: Male : 1985 Arrival Date: 08/25/2024 Time: 11:06 Bed DX2 Private MD: ED Physician Jeff Lin HPI: 08/25 11:58 This 38 yrs old Male presents to ER via Ambulatory with complaints of Dizziness, ms3 Blurred Vision. 11:58 38-year-old male with past medical history of hypertension presents emergency ms3 department for blurry vision, ringing in his ears, headache that has been ongoing for 4 months. Patient denies pain at this time. Patient states he saw neuro-ophthalmology the recommended him to have an MRI of his brain with and without contrast performed secondary to papilledema found on exam.. Historical: - Allergies: 11:41 PENICILLINS; ss - PSHx: 11:41 None; ss - Immunization history:: Client reports receiving the 2nd dose of the Covid vaccine. - Infectious Disease History:: Denies. - Social history:: Smoking status: Patient denies any tobacco usage or history of. ROS: 11:58 Constitutional: Negative for fever, and chills. Cardiovascular: Negative for chest ms3 pain, and palpitations. Respiratory: Negative for shortness of breath, cough, wheezing, and pleuritic chest pain, Abdomen/GI: Negative for abdominal pain, nausea, vomiting, diarrhea, and constipation, 11:58 Eyes: Positive for blurry vision, 11:58 Neuro: Positive for headache, Exam: 11:58 Constitutional: This is a well developed, well nourished patient who is awake, alert, ms3 and in no acute distress. Head/Face: Normocephalic, atraumatic. Chest/axilla: Normal chest wall appearance and motion. Nontender with no deformity. Cardiovascular: Regular rate and rhythm with a normal S1 and S2. No gallops, murmurs, or rubs. Normal PMI, no JVD. No pulse deficits. Respiratory: Lungs have equal breath sounds bilaterally, clear to auscultation and percussion. No rales, rhonchi or wheezes noted. No increased work of breathing, no retractions or nasal flaring. Abdomen/GI: Soft, non-tender, with normal bowel sounds. No distension or tympany. No guarding or rebound. No evidence of tenderness throughout. Skin: Warm, dry with normal turgor. Normal color with no rashes, no lesions, and no evidence of cellulitis. MS/ Extremity: Pulses equal, no cyanosis. Neurovascular intact. Full, normal range of motion. Neuro: Awake and alert, GCS 15, oriented to person, place, time, and situation. Cranial nerves II-XII grossly intact. Motor strength 5/5 in all extremities. Sensory grossly intact. Cerebellar exam normal. Normal gait. Vital Signs: 11:40 BP 137 / 96; Pulse 70; Resp 16; Temp 98.5(TE); Pulse Ox 97% on R/A; Weight 133.81 kg; ss Height 5 ft. 11 in. ; Pain 0/10; 11:40 Body Mass Index 41.14 (133.81 kg, 180.34 cm) ss 11:40 Pain Scale: Adult ss MDM: 11:46 Patient medically screened. ms3 11:58 Differential diagnosis: Tumor versus benign intracranial hypertension versus tinnitus ms3 versus Mnire's. 15:32 Data reviewed: vital signs, nurses notes, lab test result(s), radiologic studies, MRI, ms3 and as a result, I will discharge patient. 15:34 Counseling: I had a detailed discussion with the patient and/or guardian regarding the ms3 historical points, exam findings, and any diagnostic results supporting the discharge/admit diagnosis, lab results, radiology results, the need for outpatient follow up, to return to the emergency department if symptoms worsen or persist or if there are any questions or concerns that arise at home. Special discussion: I discussed with the patient/guardian in detail that at this point there is no indication for admission to the hospital. It is understood, however, that if the symptoms persist or worsen the patient needs to return immediately for re-evaluation. ED course: Discussed labs and MRI results with patient. Patient to follow-up with his neuro-access services representative. Patient understands and agrees with plan. All questions were answered. Return precautions discussed include worsening symptoms, or any other concerns. On reevaluation patient is alert and oriented x 4, no apparent distress, nontoxic-appearing, ambulatory in emergency department, speaking full sentences. 08/25 11:58 Order name: CBC w/o diff; Complete Time: 12:34 ms3 08/25 11:58 Order name: BMP; Complete Time: 12:34 ms3 08/25 12:00 Order name: Brain W/Wo Cont; Complete Time: 15:17 EDMS 08/25 11:58 Order name: IV Start; Complete Time: 12:06 ms3 Administered Medications: No medications were administered Disposition Summary: 08/25/24 15:32 Discharge Ordered Notes: Location: Home ms3 Condition: Stable ms3 Diagnosis - Blurry Vision ms3 - Headache ms3 Followup: ms3 - With: Private Physician - When: 2 - 3 days - Reason: Recheck today's complaints Discharge Instructions: - Discharge Summary Sheet ms3 - Blurred Vision, Adult ms3 - General Headache Without Cause ms3 Forms: - Medication Reconciliation Form ms3 - Antibiotic Education ms3 - Prescription Opioid Use ms3 - Patient Portal Instructions ms3 - Leadership Thank You Letter ms3 Signatures: Dispatcher [employer] Nunu Cutler RN RN Jeff Cole DO DO ms3
--- NOTE | 2024-08-25 15:33 | ER ---
Nurse's Notes [facility] Name: Miko Martínez Age: 38 yrs Sex: Male : 1985 Arrival Date: 08/25/2024 Time: 11:06 Bed DX2 Private MD: Diagnosis: Blurry Vision;Headache Presentation: 08/25 11:40 Chief complaint: Patient states: headache, blurred vision and dizziness that has been ss ongoing for months. Pt reports his physician would like for him to get an MRI to r/o tumor. Coronavirus screen: Client denies travel out of the [place] in the last 14 days. Ebola Screen: Patient denies exposure to infectious person. Patient denies travel to an Ebola-affected area in the 21 days before illness onset. Initial Sepsis Screen: Does the patient meet any 2 criteria? No. Patient's initial sepsis screen is negative. Does the patient have a suspected source of infection? No. Patient's initial sepsis screen is negative. Risk Assessment: Do you want to hurt yourself or someone else? Patient reports no desire to harm self or others. Onset of symptoms is unknown. 11:40 Method Of Arrival: Ambulatory ss 11:40 Acuity: DANIA 3 ss Historical: - Allergies: 11:41 PENICILLINS; ss - PSHx: 11:41 None; ss - Immunization history:: Client reports receiving the 2nd dose of the Covid vaccine. - Infectious Disease History:: Denies. - Social history:: Smoking status: Patient denies any tobacco usage or history of. Screenin:06 [facility] ED Fall Risk Assessment (Adult) History of falling in the last 3 months, kc6 including since admission No falls in past 3 months (0 pts) Confusion or Disorientation No (0 pts) Intoxicated or Sedated No (0 pts) Impaired Gait No (0 pts) Mobility Assist Device Used No (0 pt) Altered Elimination No (0 pt) Score/Fall Risk Level 0 - 2 = Low Risk Oriented to surroundings. Abuse screen: Denies threats or abuse. Denies injuries from another. Nutritional screening: No deficits noted. Tuberculosis screening: No symptoms or risk factors identified. Assessment: 12:07 General: Appears in no apparent distress. comfortable, well groomed, well developed, kc6 Behavior is calm, cooperative, appropriate for age. Pain: Denies pain. Neuro: Level of Consciousness is awake, alert, obeys commands, Oriented to person, place, time, situation, Appropriate for age [employer]urch[employer] are equal bilaterally Moves all extremities. Full function Gait is steady, Speech is normal, Facial symmetry appears normal, Pupils are PERRLA, Intact Babinski is positive Reports blurred vision dizziness, headache. Cardiovascular: Capillary refill < 3 seconds. Respiratory: Airway is patent Trachea midline Respiratory effort is even, unlabored, Respiratory pattern is regular, symmetrical. GI: No signs and/or symptoms were reported involving the gastrointestinal system. : No signs and/or symptoms were reported regarding the genitourinary system. EENT: No signs and/or symptoms were reported regarding the EENT system. Derm: No signs and/or symptoms reported regarding the dermatologic system. Skin is intact, is healthy with good turgor, Skin is pink, warm \T\ dry. Musculoskeletal: No signs and/or symptoms reported regarding the musculoskeletal system. Circulation, motion, and sensation intact. Capillary refill < 3 seconds, Range of motion: intact in all extremities. 13:03 Reassessment: Patient appears in no apparent distress at this time. No changes from kc6 previously documented assessment. Patient and/or family updated on plan of care and expected duration. Pain level reassessed. Patient is alert, oriented x 3, equal unlabored respirations, skin warm/dry/pink. 13:58 Reassessment: Patient appears in no apparent distress at this time. No changes from kc6 previously documented assessment. Patient and/or family updated on plan of care and expected duration. Pain level reassessed. Patient is alert, oriented x 3, equal unlabored respirations, skin warm/dry/pink. 14:30 Reassessment: pt to MRI via wheelchair. kc 14:57 Reassessment: Patient appears in no apparent distress at this time. No changes from kc6 previously documented assessment. Patient and/or family updated on plan of care and expected duration. Pain level reassessed. Patient is alert, oriented x 3, equal unlabored respirations, skin warm/dry/pink. Vital Signs: 11:40 BP 137 / 96; Pulse 70; Resp 16; Temp 98.5(TE); Pulse Ox 97% on R/A; Weight 133.81 kg; ss Height 5 ft. 11 in. ; Pain 0/10; 11:40 Body Mass Index 41.14 (133.81 kg, 180.34 cm) 11:40 Pain Scale: Adult ss ED Course: 11:09 Patient arrived in ED. mg5 11:17 Jeff Lin DO is Attending Physician. ms3 11:41 Triage completed. ss 11:41 Arm band placed on right wrist. ss 11:58 Peyton Calabrese, RN is Primary Nurse. kc6 12:06 Patient has correct armband on for positive identification. Placed in gown. Bed in low kc6 position. Call light in reach. Side rails up X 1. Pulse ox on. NIBP on. Door closed. Noise minimized. Lights dimmed. Warm blanket given. Pillow given. 12:06 Inserted saline lock: 20 gauge in right antecubital area, using aseptic technique. kc6 Blood collected. Flushed with 10 mL NS. Patient maintains SpO2 saturation greater than 95% on room air. 14:31 Patient moved to MRI via wheelchair. kc6 14:48 Brain W/Wo Cont In Process Unspecified. EDMS 15:43 No provider procedures requiring assistance completed. IV discontinued, intact, kc6 bleeding controlled, No redness/swelling at site. Pressure dressing applied. Administered Medications: No medications were administered Medication: 15:43 VIS not applicable for this client. kc6 Outcome: 15:32 Discharge ordered by . ms3 15:43 Discharged to home ambulatory, kc6 15:43 Condition: good 15:43 Discharge instructions given to patient, Instructed on discharge instructions, follow up and referral plans. Demonstrated understanding of instructions, follow-up care, 15:44 Patient left the ED. kc6 Signatures: Dispatcher [employer] EDMS Nunu Chance, RN RN Jeff Lin DO DO ms3 Peyton Calabrese, RN RN kc6 Fallon Marshall mg5
[2024-08-26 04:15] VITALS: BP 137/96; TEMP 98.5; O2SAT 97
== END 2024-08-25 15:44 | disposition home or self-care (01) ==
LOC: ER 11:06
DX: H53.8 Other visual disturbances (principal); R51.9 Headache, unspecified
CPT/HCPCS: 80048; 36415; 85027; 70553; 99284; A9577